=== PATIENT | female | born 1940 | race Caucasian/White ===

== ENCOUNTER 2021-01-17 15:58 | Inpatient (IN) | payer MEDICARE ==
[2021-01-17 16:20] LABS: Glucose,Whole Blood 289 mg/dL (75-99)
[2021-01-17] MEDS ORDERED: SODIUM CHLORIDE 0.9% 500 ML 500 ML IV STA (16:24)
--- NOTE | 2021-01-17 16:36 | ED ---
General Adult HPI - General Chief complaint: Syncope Stated complaint: dementia Time Seen by Provider: 01/17/21 16:04 Source: EMS Mode of arrival: EMS Limitations: language barrier - History of Present Illness Initial comments: Dictation was produced using [employer] dictation software. please excuse any grammatical, word or spelling errors. This patient was cared for during a federal and state declared state of emergency secondary to Covid 19 Chief Complaint: 80-year-old female with past medical history of CVA, residual deficits presents to the emergency department for altered mental status. History of Present Illness: Patient is an 80-year-old female she has past medical history of CVA. She presents to the emergency department via EMS for altered mental status. Patient unable to provide HPI at this time. Nurse received report from EMS reports to the emergency department for altered mental status. Approximately 5-10 minutes prior to arrival she had an episode of unresponsiveness this and was unable to be awakened. During EMS transfer patient begin returning to her normal baseline status. It's unclear from discussion with EMS and nurse what patient's residual deficits are. She allegedly has a history of stroke. More history was obtained from daughter Ilana Newell he was contacted over the phone. She was not home when all of this happened. She states that she was out of town. Patient was at home with rebekarenate carranza Madonna and her niece when this happened. So reports that this occurred 5 minuites prior to arrival. They're unable to tell me when patient was last normal period. Ilana does not have any contact information for Madonna who was at work currently. She also does not have any contact information for niece for more history of present illness. Daughter reports that at baseline patient is unable to be understood. She frequently urinates on herself and must wear diapers. Daughter also reports the patient does not have any extremity deficits. She also has dementia. Unable to obtain secondary to mental status PHYSICAL EXAM: General Impression: Alert and oriented x0/3, follows commands, not in acute distress, making random insensible noises HEENT: Normocephalic atraumatic, extra-ocular movements intact, pupils equal and reactive to light bilaterally, mucous membranes moist. Cardiovascular: Heart regular rate and rhythm Chest: Able to complete full sentences, no retractions, no tachypnea Abdomen: abdomen soft, non-tender, non-distended, no organomegaly Musculoskeletal: Pulses present and equal in all extremities, no peripheral edema Motor: no focal deficits noted Neurological: Right-sided facial droop, no extremity deficit or sensory deficit to light touch. She does follow commands intermittently. She makes obscene random facial expressions and noises. Skin: Intact with no visualized rashes ED course: 80-year-old female with past medical history of some cerebrovascular accident suffered in 2014 presents to the emergency department for episode of unresponsiveness, altered mental status. Vital signs upon arrival are within acceptable limits. At this point is unclear what patient's usual baseline is. Chart review was performed and there was an MRI from August 2015 that showed large evolving acute infarct of the left MCA distribution. Point of care blood sugar was 249. Given patient's deficits in uncertainty of her baseline NIH code stroke was paged. Daughter suggested that last known normal was within the last 2 hours. Patient given an NIH of 7. It's unclear when patient's symptoms began. Serum patient's age and comorbidities patient not a TPA candidate. Case is discussed with stroke doctor Dr. Jorgensen. Daughter of patient is at bedside reports that she appears to be at baseline at this time. CT brain and CT angios of the head and neck shows no acute processes. Images reviewed by radiology and stroke neurology recommends no surgical intervention at this time. States that she should be given aspirin and admitted observation with neurology consultation. Laboratory evaluation appears to be within acceptable limits. Patient given aspirin and admitted to hospitalist Dr. Logan. EKG interpretation: Ventricular rate 72, normal sinus rhythm,. 172, QRS 82, QTc 444. No MD prolongation, no QTC prolongation, no ST or T-wave changes noted. EKG compared to 09/11/2015 showing no changes. Overall, this EKG is unremarkable - Related Data Home Medications Medication Instructions Recorded Confirmed Budesonide/Formoterol Fumarate 1 puff IH BID 09/11/15 09/11/15 [Symbicort 160-4.5 Mcg Inhaler] Clotrimazole Cream [Lotrimin Cream] 1 applic TOPICAL BID 09/11/15 09/11/15 Ezetimibe [Zetia] 10 mg PO DAILY 09/11/15 09/11/15 Fluticasone Nasal [place] [Flonase 1 spray EA NOSTRIL BID 09/11/15 09/11/15 Nasal [place]] HYDROcodone/APAP 5-325MG [[place] 1 tab PO DAILY PRN 09/11/15 09/11/15 5-325] Magnesium 250 mg PO DAILY 09/11/15 09/11/15 Metoprolol Succinate (ER) [Toprol 25 mg PO DAILY 09/11/15 09/11/15 XL] Mometasone Furoate [Mometasone 1 applic TOPICAL BID 09/11/15 09/11/15 Furoate 0.1%] Montelukast [Singulair] 10 mg PO DAILY 09/11/15 09/11/15 Previous Rx's Medication Instructions Recorded Aspirin 325 mg PO DAILY #30 tab 09/15/15 Hydrochlorothiazide 12.5 mg PO DAILY #30 capsule 09/15/15 [hydroCHLOROthiazide] Losartan [Cozaar] 50 mg PO DAILY #30 tab 09/15/15 Allergies Allergy/AdvReac Type Severity Reaction Status Date / Time loratadine Allergy Unknown Verified 01/17/21 17:23 pseudoephedrine Allergy Unknown Verified 01/17/21 17:23 Decongestants Allergy Unknown Uncoded 01/17/21 17:23 Review of Systems ROS Statement: Those systems with pertinent positive or pertinent negative responses have been documented in the HPI. ROS Other: All systems not noted in ROS Statement are negative. Past Medical History Past Medical History: Deep Vein Thrombosis (DVT), Hypertension, Unable to Obtain Additional Past Medical History / Comment(s): Altered mental status History of Any Multi-Drug Resistant Organisms: None Reported Past Surgical History: Orthopedic Surgery Past Anesthesia/Blood Transfusion Reactions: Unable to Obtain Past Psychological History: Unable to Obtain Past Alcohol Use History: None Reported Past Drug Use History: Unable to Obtain - Past Family History Father Family Medical History: Diabetes Mellitus Mother Family Medical History: Blood Disorder, CVA/TIA General Exam Limitations: language barrier Course Vital Signs 01/17/21 16:10 Temperature 98.2 F Pulse Rate 72 Respiratory 16 Rate Blood Pressure 141/111 O2 Sat by Pulse 94 L Oximetry Medical Decision Making - Lab Data Result diagrams: 01/17/21 16:31 01/17/21 16:31 Lab Results 01/17/21 01/17/21 01/17/21 Range/Units 16:19 16:31 16:31 WBC 6.8 (3.8-10.6) k/uL RBC 5.18 (3.80-5.40) m/uL Hgb 14.3 (11.4-16.0) gm/dL Hct 44.4 (34.0-46.0) % MCV 85.6 (80.0-100.0) fL MCH 27.6 (25.0-35.0) pg MCHC 32.2 (31.0-37.0) g/dL RDW 13.0 (11.5-15.5) % Plt Count 251 (150-450) k/uL MPV 7.4 Neutrophils % 63 % Lymphocytes % 26 % Monocytes % 5 % Eosinophils % 3 % Basophils % 1 % Neutrophils # 4.3 (1.3-7.7) k/uL Lymphocytes # 1.8 (1.0-4.8) k/uL Monocytes # 0.4 (0-1.0) k/uL Eosinophils # 0.2 (0-0.7) k/uL Basophils # 0.1 (0-0.2) k/uL PT 9.8 (9.0-12.0) sec INR 0.9 (<1.2) APTT 20.6 L (22.0-30.0) sec Sodium (137-145) mmol/L Potassium (3.5-5.1) mmol/L Chloride (98-107) mmol/L Carbon Dioxide (22-30) mmol/L Anion Gap mmol/L BUN (7-17) mg/dL Creatinine (0.52-1.04) mg/dL Est GFR (CKD-EPI)AfAm (>60 ml/min/1.73 sqM) Est GFR (CKD-EPI)NonAf (>60 ml/min/1.73 sqM) Glucose (74-99) mg/dL POC Glucose (mg/dL) 289 H (75-99) mg/dL POC Glu Physical Chemistry Teacher Michaela Deluna Calcium (8.4-10.2) mg/dL Total Bilirubin (0.2-1.3) mg/dL AST (14-36) U/L ALT (4-34) U/L Alkaline Phosphatase (38-126) U/L Troponin I (0.000-0.034) ng/mL Total Protein (6.3-8.2) g/dL Albumin (3.5-5.0) g/dL 01/17/21 01/17/21 Range/Units 16:31 16:31 WBC (3.8-10.6) k/uL RBC (3.80-5.40) m/uL Hgb (11.4-16.0) gm/dL Hct (34.0-46.0) % MCV (80.0-100.0) fL MCH (25.0-35.0) pg MCHC (31.0-37.0) g/dL RDW (11.5-15.5) % Plt Count (150-450) k/uL MPV Neutrophils % % Lymphocytes % % Monocytes % % Eosinophils % % Basophils % % Neutrophils # (1.3-7.7) k/uL Lymphocytes # (1.0-4.8) k/uL Monocytes # (0-1.0) k/uL Eosinophils # (0-0.7) k/uL Basophils # (0-0.2) k/uL PT (9.0-12.0) sec INR (<1.2) APTT (22.0-30.0) sec Sodium 137 (137-145) mmol/L Potassium 4.5 (3.5-5.1) mmol/L Chloride 100 (98-107) mmol/L Carbon Dioxide 30 (22-30) mmol/L Anion Gap 7 mmol/L BUN 13 (7-17) mg/dL Creatinine 0.65 (0.52-1.04) mg/dL Est GFR (CKD-EPI)AfAm >90 (>60 ml/min/1.73 sqM) Est GFR (CKD-EPI)NonAf 84 (>60 ml/min/1.73 sqM) Glucose 298 H (74-99) mg/dL POC Glucose (mg/dL) (75-99) mg/dL POC Glu Physical Chemistry Teacher ID Calcium 9.7 (8.4-10.2) mg/dL Total Bilirubin 0.6 (0.2-1.3) mg/dL AST 44 H (14-36) U/L ALT 28 (4-34) U/L Alkaline Phosphatase 81 (38-126) U/L Troponin I <0.012 (0.000-0.034) ng/mL Total Protein 7.2 (6.3-8.2) g/dL Albumin 4.1 (3.5-5.0) g/dL Disposition Clinical Impression: Syncope Disposition: ADMITTED IP TO THIS HOSP Condition: Fair Referrals: Natali Lawson DO [Primary Care Provider] - 1-2 days Decision Time: 17:24
[2021-01-17 16:37] LABS: Basophils # (A) 0.1 k/uL (0-0.2); Basophils % (A) 1 %; Eosinophils # (A) 0.2 k/uL (0-0.7); Eosinophils % (A) 3 %; HCT 44.4 % (34.0-46.0); HGB 14.3 gm/dL (11.4-16.0); Lymphocytes # (A) 1.8 k/uL (1.0-4.8); Lymphocytes % (A) 26 %; MCH 27.6 pg (25.0-35.0); MCHC 32.2 g/dL (31.0-37.0); MCV 85.6 fL (80.0-100.0); Mean Platelet Volume 7.4; Monocytes # (A) 0.4 k/uL (0-1.0); Monocytes % (A) 5 %; Neutrophils # (A) 4.3 k/uL (1.3-7.7); Neutrophils % (A) 63 %; Platelet Count 251 k/uL (150-450); RBC 5.18 m/uL (3.80-5.40); WBC 6.8 k/uL (3.8-10.6)
[2021-01-17 16:51] LABS: ALT 28 U/L (4-34); AST 44 U/L (14-36); African American GFR (CKD) >90 (>60 ml/min/1.73 sqM); Albumin 4.1 g/dL (3.5-5.0); Alkaline Phosphatase 81 U/L (38-126); Anion Gap 7 mmol/L; Blood Urea Nitrogen 13 mg/dL (7-17); Calcium 9.7 mg/dL (8.4-10.2); Carbon Dioxide 30 mmol/L (22-30); Chloride 100 mmol/L (98-107); Glucose 298 mg/dL (74-99); Non-African American GFR(CKD) 84 (>60 ml/min/1.73 sqM); Potassium 4.5 mmol/L (3.5-5.1); Sodium 137 mmol/L (137-145); Total Bilirubin 0.6 mg/dL (0.2-1.3); Total Protein 7.2 g/dL (6.3-8.2)
[2021-01-17 16:55] LABS: INR 0.9 (<1.2); Prothrombin Time 9.8 sec (9.0-12.0)
[2021-01-17 17:00] LABS: Partial Thromboplastin Time 20.6 sec (22.0-30.0)
--- NOTE | 2021-01-17 17:19 | CT ---
EXAMINATION TYPE: CT brain wo con for TPA DATE OF EXAM: 01/17/2021 HISTORY: Neuro deficit, acute, stroke suspected. History of prior stroke.. CT DLP: 1125.8 mGycm. Automated Exposure Control for Dose Reduction was Utilized. TECHNIQUE: CT scan of the head is performed without contrast. COMPARISON: 09/11/2015 FINDINGS: There is no acute intracranial hemorrhage, midline shift, or mass effect identified. There is old inf arction with large area of encephalomalacia of the left MCA distribution, with concordant ex vacuo di latation of the left lateral ventricle. No abnormal extra-axial fluid collection. Bones and extracranial soft tissues are intact. The globes are grossly symmetric. Visualized sinuses and mastoid air cells are clear. IMPRESSION: 1. No acute intracranial hemorrhage, midline shift, or mass effect. 2. Old infarction of the left MCA distribution. Dr. Laura Harrison discussed findings with Dr. Jeison Troy via the phone on 01/17/2021 at 5:16 PM, and results were acknowledged.
[2021-01-17] MEDS ORDERED: ASPIRIN 81 MG PO STA (17:21)
[2021-01-17] MEDS ORDERED: ONDANSETRON 4 MG/2 ML VIAL IVP PRN (17:22)
[2021-01-17] MEDS ORDERED: NALOXONE 0.4 MG/ML 1 ML VIAL IV PRN (17:22)
[2021-01-17] MEDS ORDERED: ACETAMINOPHEN TAB 325 MG TAB PO PRN (17:22)
--- NOTE | 2021-01-17 17:29 | CT ---
EXAMINATION TYPE: CT angio head neck DATE OF EXAM: 01/17/2021 HISTORY: Not communicating. Neuro deficit, acute, stroke suspected COMPARISON: None CT DLP: 570.8 mGycm. Automated Exposure Control for Dose Reduction was Utilized. TECHNIQUE: CTA scan of the neck is performed with IV Contrast, patient injected with 65 mL of Isovue 370, axial images are obtained, coronal and sagittal reformatted images are reviewed. Three-D recons tructed images are created on an independent workstation and reviewed. Source images are reviewed. FINDINGS: Carotid/Vascular Structures: There is patency of the bilateral common carotid arteries and internal c arotid arteries with no hemodynamically significant stenosis, aneurysm, or dissection. Cervical of [place]: Vertebral basilar system appears patent and codominant. Posterior cerebral vascul ature is patent. Atherosclerotic changes of the cavernous portion of the ICA without significant sign ificant stenosis. Internal carotid artery bifurcate normally into A1 and M1 segments on the right. On the left there is large vessel occlusion of the middle cerebral artery at the level of the origin. A 2 segments are patent. The anterior communicating artery is patent. Left Posterior communicating gabby ry is diminutive versus congenitally absent. Right posterior communicating artery is patent. Other: Encephalomalacia and ex vacuo dilatation of the left lateral ventricles consistent with chroni c infarction of the left MCA distribution. IMPRESSION: 1. 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 There is o ld infarction with encephalomalacia of the left MCA territory and ex vacuo dilatation of the left lat eral ventricle. 2. No hemodynamically significant stenosis or occlusion of the arteries of the neck.
--- NOTE | 2021-01-17 17:55 | XR ---
EXAMINATION TYPE: XR chest 1V portable DATE OF EXAM: 01/17/2021 CLINICAL HISTORY: seizure? Syncope?. TECHNIQUE: Portable frontal view of the chest. COMPARISON: 09/11/2015 chest radiograph FINDINGS: Low lung volumes. The cardiomediastinal silhouette is within normal limits for size. Pulmo nary vasculature is normal. There is no focal air space opacity, pleural effusion, or pneumothorax se en. Chronic appearing right rib fracture deformity. IMPRESSION: No acute cardiopulmonary process.
[2021-01-17 20:06] LABS: Glucose,Whole Blood 240 mg/dL (75-99)
[2021-01-17] MEDS: ATORVASTATIN 40 MG TAB PO SCH (20:25)
[2021-01-17] MEDS: MONTELUKAST 10 MG TAB PO SCH (20:25)
[2021-01-17] MEDS: SODIUM CHLORIDE 0.9% 1,000 ML IV SCH (20:25)
[2021-01-17] MEDS: INSULIN ASPART (NovoLOG) 100 UNIT/ML VIAL SQ SCH (20:25)
[2021-01-18 06:10] LABS: Glucose,Whole Blood 151 mg/dL (75-99)
[2021-01-18] MEDS: PANTOPRAZOLE 40 MG TABLET PO SCH (06:57)
[2021-01-18] MEDS: INSULIN ASPART (NovoLOG) 100 UNIT/ML VIAL SQ SCH ×4 (06:57→21:26)
[2021-01-18] MEDS: ASPIRIN 325 MG TAB PO SCH (07:41)
[2021-01-18] MEDS: FLUoxetine HCL 20 MG CAP PO SCH (07:41)
[2021-01-18] MEDS: METOPROLOL TARTRATE 25 MG TAB PO SCH (07:41)
[2021-01-18] MEDS: hydroCHLOROthiazide 12.5 MG CAP PO SCH (07:42)
[2021-01-18] MEDS: EZETIMIBE 10 MG TAB PO SCH (07:42)
[2021-01-18] MEDS: amLODIPine 5 MG TAB PO SCH (10:38)
[2021-01-18 11:36] LABS: Glucose,Whole Blood 243 mg/dL (75-99)
[2021-01-18 11:51] LABS: Appearance,Urine Clear (Clear); Bilirubin,Urine Negative (Negative); Blood,Urine Negative (Negative); Color,Urine Light Yellow; Glucose,Urine (UA) 2+ (Negative); Ketones,Urine Negative (Negative); Leukocyte Esterase,Urine Negative (Negative); Nitrite,Urine Negative (Negative); Protein,Urine Negative (Negative); Specific Gravity,Urine 1.015 (1.001-1.035); Urobilinogen,Urine <2.0 mg/dL (<2.0)
[2021-01-18 16:43] LABS: Glucose,Whole Blood 207 mg/dL (75-99)
[2021-01-18] MEDS: SODIUM CHLORIDE 0.9% 1,000 ML IV SCH (17:14)
--- NOTE | 2021-01-18 18:30 | P.CNNES ---
History of Present Illness Consult date: 01/18/21 Requesting physician: Mark Logan Reason for Consult: Altered mental status, resolved, discharge clearance History of Present Illness: Patient is a 80-year-old female came to the hospital yesterday at 3:58 PM by ambulance. 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 Patient not able to provide any history. Per EMS flow sheet, when they arrived, patient was alert and oriented to baseline, in her recliner. Family has noted that just before activating 911, the patient had clenched her eyes and had some shaking in her arms before briefly becoming unresponsive and difficult to be awakened. During EMS transfer, patient began returning to her normal baseline status. According to EMS sheet, patient was noted to have slurred speech, right facial drooping and right sided deficits from previous CVA. Her vital signs at the scene was blood pressure 149/86, pulse rate 77, respirations 16. Blood sugar was 320. Patient returned back to baseline while she arrived to the ER, as per information from patient's granddaughter statement. Patient was therefore not a candidate for TPA. Vital signs on arrival blood pressure 141/111, which came down to 158/81. Temperature 98.2, pulse 72. Patient's blood pressure has gone up to 213/85 as well. Patient's computed tomography scan of the head showed no acute intracranial hemorrhage, midline shift or mass effect. Old infarction of the left MCA distribution. CTA of head and neck showed complete occlusion of the left MCA at the origin of M1 segment. There is old infarction with encephalomalacia of the left MCA territory and ex vacuo dilation of the left lateral ventricle. No hemodynamically significant stenosis or occlusion of the arteries of the neck. EKG shows normal sinus rhythm. Left axis deviation. Chest x-ray showed no acute cardiopulmonary disease. Patient has history of an acute left MCA territory stroke on 09/12/2015, in which MRI showed a large evolving acute infarct left MCA distribution involving portions of frontal, parietal and temporal lobes. Patient currently on Crestor 20 mg, omeprazole 20 mg, fluoxetine 40 mg, metoprolol 25 mg HCTZ, aspirin 325 mg, Zetia 10 mg and Singulair. Review of Systems ROS unobtainable: due to mental status Past Medical History Past Medical History: Deep Vein Thrombosis (DVT), Hypertension, Unable to Obtain Additional Past Medical History / Comment(s): Altered mental status patient unable to answer questions message left at home phone number to call back to help with medical hs and admit info. History of Any Multi-Drug Resistant Organisms: None Reported Past Surgical History: Orthopedic Surgery Past Anesthesia/Blood Transfusion Reactions: Unable to Obtain Past Psychological History: Unable to Obtain Smoking Status: Never smoker Past Alcohol Use History: None Reported Past Drug Use History: Unable to Obtain - Past Family History Father Family Medical History: Diabetes Mellitus Mother Family Medical History: Blood Disorder, CVA/TIA Medications and Allergies Home Medications Medication Instructions Recorded Confirmed Type Ezetimibe [Zetia] 10 mg PO DAILY 09/11/15 01/17/21 History Montelukast [Singulair] 10 mg PO DAILY 09/11/15 01/17/21 History Aspirin 325 mg PO DAILY #30 tab 09/15/15 01/17/21 Rx Hydrochlorothiazide 12.5 mg PO DAILY #30 capsule 09/15/15 01/17/21 Rx [hydroCHLOROthiazide] FLUoxetine HCL 40 mg PO DAILY 01/17/21 01/17/21 History Metoprolol Tartrate [Lopressor] 25 mg PO DAILY 01/17/21 01/17/21 History Omeprazole 20 mg PO DAILY 01/17/21 01/17/21 History Rosuvastatin [Crestor] 20 mg PO DAILY 01/17/21 01/17/21 History amLODIPine [Norvasc] 5 mg PO DAILY #30 tab 01/18/21 Rx Allergies Allergy/AdvReac Type Severity Reaction Status Date / Time loratadine Allergy Unknown Verified 01/17/21 17:23 pseudoephedrine Allergy Unknown Verified 01/17/21 17:23 Decongestants Allergy Unknown Uncoded 01/17/21 17:23 Physical Examination - Vital Signs Vital Signs: Vital Signs Temp Pulse Pulse Resp BP BP Pulse Ox 01/18/21 14:50 98.0 F 69 18 167/78 95 01/18/21 11:27 167/78 01/18/21 10:41 98.2 F 64 16 213/85 94 L 01/18/21 07:26 97.8 F 67 16 199/91 01/18/21 04:00 98.6 F 80 18 140/82 95 01/18/21 02:00 73 20 01/18/21 00:00 73 20 136/88 94 L 01/17/21 20:00 78 18 01/17/21 18:29 98.2 F 78 18 148/70 95 01/17/21 17:26 72 19 158/81 94 L Intake and Output 01/18/21 01/18/21 01/18/21 06:59 14:59 22:59 Intake Total 160 Output Total 250 Balance -90 Intake: IV 160 Sodium Chloride 0.9% 1, 160 000 ml @ 20 mls/hr IV . Q24H KYLE Rx#:[id number] Output: Urine 250 Straight 250 Other: # Voids 1 1 # Bowel Movements 1 Weight 93 kg Patient is an elderly female, very pleasant. Patient is alert awake. Patient has fluent aphasia. Patient speaks nonsensical language fluently. Patient cannot name, cannot repeat, cannot follow directions like pointing to the door or pointing to the ceiling. Patient not able to read, not able to follow written commands either. On cranial examination, pupils are round and reacting to light, visual jo could not be tested, but patient blinks more clearly on the left as compared to the right with visual threat, extraocular muscles are intact with no nystagmus. Patient has right facial weakness, central type, tongue protrudes to the midline. Palatal elevation and sensation could not be checked, shoulder shrug normal, facial sensation normal. Hearing appears normal. On muscle strength testing, there is no pronator drift and the strength is normal in arms and legs distally and proximally. Deep tendon reflexes are 1-1+ in the upper and lower limbs and plantars are downgoing. Sensory to touch could not be assessed because of patient's fluent aphasia. Cerebellar function showed no ataxia for [id number] testing. Tone and bulk of muscles normal. Gait deferred. On general examination, there is no carotid bruit or murmur, S1-S2 audible. Abdomen is soft nontender. Chest is clear. Peripheral pulses are present. No edema. Results - Laboratory Findings CBC and BMP: 01/17/21 16:31 01/17/21 16:31 Abnormal Lab Findings: Abnormal Labs 01/17/21 01/17/21 01/17/21 16:19 16:31 16:31 APTT 20.6 L Glucose 298 H POC Glucose (mg/dL) 289 H AST 44 H Urine Glucose (UA) 01/17/21 01/18/21 01/18/21 20:05 06:09 10:35 APTT Glucose POC Glucose (mg/dL) 240 H 151 H AST Urine Glucose (UA) 2+ H 01/18/21 11:35 APTT Glucose POC Glucose (mg/dL) 243 H AST Urine Glucose (UA) Assessment and Plan Assessment: * 80-year-old female, with history of left MCA territory ischemic CVA in 2014, with residual fluent aphasia, had an episode of unresponsiveness with some seizure-like activity, and some post ictal confusion. Rule out focal seizure. * History of left MCA territory CVA with residual deficits as above. * CTA revealed complete occlusion of left MCA at the origin of M1 segment. Probably old finding. Plan: * EEG evaluate for any interictal epileptiform activity. * MRI brain, rule out any new CVA. * Continue aspirin 325 mg daily. If any new CVA, then patient would need dual antiplatelet medication. * Hemoglobin A1c and fasting lipid panel. * We will follow.
[2021-01-18 19:58] LABS: Glucose,Whole Blood 231 mg/dL (75-99)
[2021-01-18] MEDS: MONTELUKAST 10 MG TAB PO SCH (21:27)
[2021-01-18] MEDS: ATORVASTATIN 40 MG TAB PO SCH (21:27)
[2021-01-19 05:58] LABS: Glucose,Whole Blood 180 mg/dL (75-99)
[2021-01-19] MEDS: INSULIN ASPART (NovoLOG) 100 UNIT/ML VIAL SQ SCH ×2 (06:14→12:38)
[2021-01-19] MEDS: PANTOPRAZOLE 40 MG TABLET PO SCH (06:15)
--- NOTE | 2021-01-19 08:10 | P.HPIM ---
History of Present Illness H&P Date: 01/18/21 Chief Complaint: shaking spell Hali Newell is an 80 yo F with PMH of CVA with subsequent global aphasia who presented to the ED via EMS after experiencing an episode at home in which she was noted to shake her upper extremitiesa and was very diffcult to arouse. Patient not able to provide any history. Per EMS flow sheet, when they arrived, patient was alert and oriented to baseline, in her recliner. Family has noted that just before activating 911, the patient had clenched her eyes and had some shaking in her arms before briefly becoming unresponsive and difficult to be awakened. During EMS transfer, patient began returning to her normal baseline status. Patient returned back to baseline while she arrived to the ER, as per information from patient's granddaughter statement. Patient was therefore not a candidate for TPA. On presentation she was hypertensive, CT head no acute process, CTA of head and neck showed complete occlusion of the left MCA at the origin of M1 segment. Review of Systems ROS unobtainable: due to mental status All systems: negative Constitutional: Denies chills, Denies fever Eyes: denies blurred vision, denies pain Ears, nose, mouth and throat: Denies headache, Denies sore throat Cardiovascular: Denies chest pain, Denies shortness of breath Respiratory: Denies cough Gastrointestinal: Reports abdominal pain, Denies diarrhea, Denies nausea, Denies vomiting Genitourinary: Denies dysuria, Denies hematuria Musculoskeletal: Denies myalgias Integumentary: Denies pruritus, Denies rash Neurological: Denies numbness, Denies weakness Psychiatric: Denies anxiety, Denies depression Endocrine: Denies fatigue, Denies weight change Past Medical History Past Medical History: Deep Vein Thrombosis (DVT), Hypertension, Unable to Obtain Additional Past Medical History / Comment(s): Altered mental status patient unable to answer questions message left at home phone number to call back to help with medical hs and admit info. History of Any Multi-Drug Resistant Organisms: None Reported Past Surgical History: Orthopedic Surgery Past Anesthesia/Blood Transfusion Reactions: Unable to Obtain Past Psychological History: Unable to Obtain Smoking Status: Never smoker Past Alcohol Use History: None Reported Past Drug Use History: Unable to Obtain - Past Family History Father Family Medical History: Diabetes Mellitus Mother Family Medical History: Blood Disorder, CVA/TIA Medications and Allergies Home Medications Medication Instructions Recorded Confirmed Type Ezetimibe [Zetia] 10 mg PO DAILY 09/11/15 01/17/21 History Montelukast [Singulair] 10 mg PO DAILY 09/11/15 01/17/21 History Aspirin 325 mg PO DAILY #30 tab 09/15/15 01/17/21 Rx Hydrochlorothiazide 12.5 mg PO DAILY #30 capsule 09/15/15 01/17/21 Rx [hydroCHLOROthiazide] FLUoxetine HCL 40 mg PO DAILY 01/17/21 01/17/21 History Metoprolol Tartrate [Lopressor] 25 mg PO DAILY 01/17/21 01/17/21 History Omeprazole 20 mg PO DAILY 01/17/21 01/17/21 History Rosuvastatin [Crestor] 20 mg PO DAILY 01/17/21 01/17/21 History amLODIPine [Norvasc] 5 mg PO DAILY #30 tab 01/18/21 Rx Allergies Allergy/AdvReac Type Severity Reaction Status Date / Time loratadine Allergy Unknown Verified 01/17/21 17:23 pseudoephedrine Allergy Unknown Verified 01/17/21 17:23 Decongestants Allergy Unknown Uncoded 01/17/21 17:23 Physical Exam Vitals: Vital Signs Temp Pulse Resp BP Pulse Ox 01/18/21 14:50 98.0 F 69 18 167/78 95 01/18/21 11:27 167/78 01/18/21 10:41 98.2 F 64 16 213/85 94 L 01/18/21 07:26 97.8 F 67 16 199/91 01/18/21 04:00 98.6 F 80 18 140/82 95 01/18/21 02:00 73 20 01/18/21 00:00 73 20 136/88 94 L Intake and Output 01/18/21 01/18/21 01/18/21 06:59 14:59 22:59 Intake Total 160 240 Output Total 250 Balance -90 240 Intake: IV 160 Sodium Chloride 0.9% 1, 160 000 ml @ 20 mls/hr IV . Q24H KYLE Rx#:[id number] Oral 240 Output: Urine 250 Straight 250 Other: # Voids 1 1 # Bowel Movements 1 Weight 93 kg General: well nourished, well developed elderly female in NAD. Vitals reviewed Eyes: PERRL, EOMI, conjunctiva normal HENT: normocephalic, mucus membranes moist Neck: supple, no JVD Lungs: normal respiratory effort, no wheezes or rales CV: Regular rate and rhythm, no murmur. Peripheral pulses 2+ Abdomen: soft, nondistended, no organomegaly. tenderness to palpation suprapubic Lymph: no cervical or axillary LAD Skin: warm and dry. Neuro: oriented, expressive aphasia Results CBC & Chem 7: 01/17/21 16:31 01/17/21 16:31 Labs: Abnormal Lab Results - Last 24 Hours (Table) 01/18/21 01/18/21 01/18/21 Range/Units 06:09 10:35 11:35 POC Glucose (mg/dL) 151 H 243 H (75-99) mg/dL Urine Glucose (UA) 2+ H (Negative) 01/18/21 01/18/21 Range/Units 16:41 19:57 POC Glucose (mg/dL) 207 H 231 H (75-99) mg/dL Urine Glucose (UA) (Negative) Assessment and Plan (1) Seizure-like activity Current Visit: Yes Status: Acute Code(s): R56.9 - UNSPECIFIED CONVULSIONS SNOMED Code(s): 784614171 (2) History of CVA with residual deficit Current Visit: Yes Status: Acute Code(s): I69.30 - UNSPECIFIED SEQUELAE OF CEREBRAL INFARCTION SNOMED Code(s): 978021094 (3) Essential hypertension Current Visit: Yes Status: Acute Code(s): I10 - ESSENTIAL (PRIMARY) HYPERTENSION SNOMED Code(s): 63665217 Plan: 1. Seizure like activity, not candidate for tPA as she has returned to baseline. Admit and neurology consulted for further evaluation 2. Hx L MCA CVA with fluent aphasia. Continue ASA and lipitor 3. HTN. Continue HCTZ, metoprolol 4. Major depression. Continue prozac
[2021-01-19] MEDS: ASPIRIN 325 MG TAB PO SCH (10:41)
[2021-01-19] MEDS: hydroCHLOROthiazide 12.5 MG CAP PO SCH (10:42)
[2021-01-19] MEDS: METOPROLOL TARTRATE 25 MG TAB PO SCH (10:43)
[2021-01-19] MEDS: FLUoxetine HCL 20 MG CAP PO SCH (10:43)
[2021-01-19] MEDS: EZETIMIBE 10 MG TAB PO SCH (10:45)
[2021-01-19] MEDS: amLODIPine 5 MG TAB PO SCH (10:45)
[2021-01-19 11:37] LABS: Glucose,Whole Blood 199 mg/dL (75-99)
--- NOTE | 2021-01-19 12:28 | EEG ---
ELECTROENCEPHALOGRAM REPORT DATE OF SERVICE: 01/19/2021 PREAMBLE: This is an 80-year-old female with a history of stroke, came with seizure-like activity. This study is performed to evaluate for any epileptiform activity. EEG FINDINGS: This is a 21 channel routine EEG recording in a patient utilizing 10/20 international system with referential and bipolar montages. The background consists of well- developed, moderately well regulated, mixed frequencies of alpha and some theta activity seen posteriorly in bihemispheric region. The background seems to be very minimally reactive to eye opening and closing. There is digital frequent pause of focal slowing in polymorphic delta range seen in the left frontal temporal region. Additional asynchronous slowing in bihemispheric region was also seen. Photic driving response was not seen. No definitive focal or generalized epileptiform activity was seen. IMPRESSION: This is an abnormal EEG due to: 1. Focal slowing in rhythmic and arrhythmic delta activity seen in the left frontal temporal region, suggestive of focal cortical neuronal dysfunctions and suggest underlying structural abnormality. 2. Background disorganization with asynchronous slowing suggestive of encephalopathy of metabolic, vascular or degenerative causes. No definitive epileptiform activity was seen. MMODL / IJN: [id number] /
[2021-01-19 13:29] VITALS: BP 145/66; PULSE 57; RESP 19; TEMP 97.7
[2021-01-19 13:29] LABS: Cholesterol 269 mg/dL (<200); HDL Cholesterol 38 mg/dL (40-60); LDL Cholesterol,Calculated 165 mg/dL (0-99); Triglycerides 332 mg/dL (<150)
--- NOTE | 2021-01-19 15:46 | MR ---
EXAMINATION TYPE: MR brain wo con DATE OF EXAM: 01/19/2021 COMPARISON: MRI brain September 12, 2015. CT head 2 days ago. HISTORY: Seizure versus TIA versus CVA. Confusion, not able to speak clearly; acute onset neuro defic it 2 days ago on admission. TECHNIQUE: Multiplanar, multisequence imaging of the brain and brainstem is performed without IV cont rast. FINDINGS: Diffusion weighted images demonstrate no evidence of a recent infarct . There is moderate ventricular and sulcal prominence. Significant encephalomalacia in the left MCA dis tribution involving frontal temporal and parietal lobes with ex vacuo dilatation left lateral ventric ular system is redemonstrated. There are areas of T2 hyperintensity throughout the white matter great est at periventricular levels now present. Midline structures demonstrate normal morphology. The craniocervical junction appears within normal limits. Normal vascular flow voids are present. Moderate to severe mucosal thickening involving the sphenoid sinuses bilaterally is redemonstrated. The globes are intact bilaterally. IMPRESSION: No MRI evidence for recent infarct. Large area of encephalomalacia left MCA distribution redemonstrated noted involving the left temporal lobe. Background moderate diffuse cerebral atrophy a nd chronic small vessel ischemic changes.
[2021-01-19 16:38] LABS: Glucose,Whole Blood 194 mg/dL (75-99)
[2021-01-19 20:33] LABS: Hemoglobin A1C 10.1 % (4.0-6.0)
--- NOTE | 2021-01-20 09:06 | P.PN ---
Subjective Progress Note Date: 01/19/21 Patient was seen earlier during the day. This is late entry. Patient is laying comfortably in the bed. Patient continues to be fluently aphasic. Having her lunch. Objective - Vital Signs Vital signs: Vital Signs Temp 97.7 F 01/19/21 13:28 Pulse 57 L 01/19/21 14:00 Resp 19 01/19/21 14:00 BP 145/66 01/19/21 13:28 Pulse Ox 96 01/19/21 13:28 Intake & Output 01/19/21 01/19/21 01/20/21 06:59 18:59 06:59 Intake Total 720 Balance 720 Weight 91 kg Intake: Oral 720 Other: # Voids 1 1 - Exam Essentially unchanged. - Labs CBC & Chem 7: 01/17/21 16:31 01/17/21 16:31 Labs: Abnormal Lab Results - Last 24 Hours (Table) 01/19/21 01/19/21 01/19/21 Range/Units 05:57 11:35 12:54 POC Glucose (mg/dL) 180 H 199 H (75-99) mg/dL Hemoglobin A1c 10.1 H (4.0-6.0) % Triglycerides (<150) mg/dL Cholesterol (<200) mg/dL LDL Cholesterol, Calc (0-99) mg/dL HDL Cholesterol (40-60) mg/dL 01/19/21 01/19/21 Range/Units 12:54 16:35 POC Glucose (mg/dL) 194 H (75-99) mg/dL Hemoglobin A1c (4.0-6.0) % Triglycerides 332 H (<150) mg/dL Cholesterol 269 H (<200) mg/dL LDL Cholesterol, Calc 165 H (0-99) mg/dL HDL Cholesterol 38 L (40-60) mg/dL Assessment and Plan Assessment: * 80-year-old female, with history of left MCA territory ischemic CVA in 2015, w ith residual fluent aphasia, had an episode of unresponsiveness with some seizure-like activity, and some post ictal confusion. Rule out focal seizure. * History of left MCA territory CVA with residual deficits as above. * CTA revealed complete occlusion of left MCA at the origin of M1 segment. Prob ably old finding. Plan: * EEG was abnormal due to focal slowing in rhythmic and arrhythmic delta activity seen in the left frontal temporal region, suggestive of focal cortic al neuronal dysfunction and suggest underlying structural abnormality. Background disorganization with asynchronous slowing suggestive of encephalopathy of metabolic, vascular or degenerative causes. No definitive epileptiform activity was seen. * MRI brain revealed no acute process. Large area of encephalomalacia left MCA distribution redemonstrated noted involving the left temporal lobe. Ba ckground moderate diffuse cerebral atrophy and chronic small vessel ischemic changes. MRI of the brain also revealed bilateral acute sphenoid sinusitis, worse as compared to previous imaging. * Continue aspirin 325 mg daily. If any new CVA, then patient would need dual antiplatelet medication. Recommendations: Patient's MRI of the brain showed no new stroke. EEG showed focal slowing which is rhythmic and arrhythmic on the left frontal temporal region. Patient's episo de was highly suggestive of possible seizure. Patient will be started on Keppra 250 mg twice a day. Patient needs to follow-up with a neurologist in 1-2 weeks if possible, for further management of seizure disorder. Patient will be continued on aspirin 325 mg daily. Patient also has evidence of sphenoid sinusitis. Recommend starting Augmentin 875 mg twice a day for 10-14 days. Addendum 01/20/2021 (9 am): Reviewed further blood test results of the patient. Hemoglobin A1c 10.1 Fasting lipid panel showed cholesterol 269, LDL 165, HDL 38 and triglycerides 332. Patient has new onset diabetes with hemoglobin A1c 10.1. Need to optimize control of diabetes to target hemoglobin A1c <7.0 Patient's lipids also showed very high cholesterol 269 and LDL 165. Recommend starting high-dose statins Lipitor 80 mg. Discussed with patient's primary team about these recommendations today. Patient needs to follow-up with her primary physician as soon as possible.
--- NOTE | 2021-01-20 13:44 | P.DS ---
Providers Date of admission: 01/17/21 17:22 Expected date of discharge: 01/19/21 Attending physician: Mark Logan MD Consults: 01/18/21 09:54 Consult Physician Routine Consulting Provider: Prashant Flores Consult Reason/Comments: Alterend Mental Status - resolved, discharge clearance Do you want consulting provider notified?: Yes Primary care physician: Natali Lawson Hospital Course: Final Diagnoses: Seizure like activity, not a candidate for TPA as he returned to baseline. Keppra initiated. 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 Patient not able to provide any history. Per EMS flow sheet, when they arrived, patient was alert and oriented to baseline, in her recliner. Family has noted that just before activating 911, the patient had clenched her eyes and had some shaking in her arms before briefly becoming unresponsive and difficult to be awakened. During EMS transfer, patient began returning to her normal baseline status. Patient returned back to baseline while she arrived to the ER, as per information from patient's granddaughter statement. Patient was therefore not a candidate for TPA. On presentation she was hypertensive, CT head no acute process, CTA of head and neck showed complete occlusion of the left MCA at the origin of M1 segment. Evaluated by neurology neurology, neuro workup completed. Brain MRI reported no acute process, large area of encephalomalacia left MCA distribution redemonstrated noted involving the left temporal lobe. Background moderate diffuse cerebral atrophy and chronic small vessel ischemic changes,also revealed bilateral acute sphenoid sinusitis, worse as compared to previous imaging. Patient will be discharged on Augmentin. EGD reported focal slowing, rhythmic and arrhythmic of the left frontotemporal region. Patient had an episode of unresponsiveness with some seizure-like activity with some post ictal confusion, highly suggestive of possible seizure. Keppra initiated and advised to follow up with a neurologist in 1-2 weeks. Continued on aspirin 325 mg daily. Patient also presented with high cholesterol, 269 and LDL 165, HDL 38, triglycerides 332, statin changed over to Lipitor 80 mg daily. Hemoglobin A1c 10.1, metformin initiated and patient will require diabetic teaching in the outpatient clinic. Significant clinical improvement. Cleared by neurology for discharge. Patient will be discharged home today in a stable condition with guarded prognosis. Patient is scheduled to follow-up with Dr. Mark Logan on Saturday. Patient has been advised on seizure precautions/[place] state law regarding seizures, no driving, no swimming alone. The impression and plan of care has been dictated as directed. : I performed a history and examination of this patient, discussed the same with the dictator. I agree with the dictator's note ,documented as a scribe. Any additional findings or plans will be noted. Patient Condition at Discharge: Stable Plan - Discharge Summary New Discharge Prescriptions: New amLODIPine [Norvasc] 5 mg PO DAILY #30 tab Amoxic-Pot Clav 875-125Mg [Augmentin 875-125] 1 tab PO BID 1 Days #20 tab levETIRAcetam [Keppra] 250 mg PO BID #60 tab Atorvastatin [Lipitor] 80 mg PO HS #30 tab metFORMIN HCL [Glucophage] 500 mg PO BID #60 tab Continue Montelukast [Singulair] 10 mg PO DAILY Ezetimibe [Zetia] 10 mg PO DAILY Aspirin 325 mg PO DAILY #30 tab Hydrochlorothiazide [hydroCHLOROthiazide] 12.5 mg PO DAILY #30 capsule Metoprolol Tartrate [Lopressor] 25 mg PO DAILY FLUoxetine HCL 40 mg PO DAILY Omeprazole 20 mg PO DAILY Discontinued Rosuvastatin [Crestor] 20 mg PO DAILY Discharge Medication List Ezetimibe [Zetia] 10 mg PO DAILY 09/11/15 [History] Montelukast [Singulair] 10 mg PO DAILY 09/11/15 [History] Aspirin 325 mg PO DAILY #30 tab 09/15/15 [Rx] Hydrochlorothiazide [hydroCHLOROthiazide] 12.5 mg PO DAILY #30 capsule 09/15/15 [Rx] FLUoxetine HCL 40 mg PO DAILY 01/17/21 [History] Metoprolol Tartrate [Lopressor] 25 mg PO DAILY 01/17/21 [History] Omeprazole 20 mg PO DAILY 01/17/21 [History] amLODIPine [Norvasc] 5 mg PO DAILY #30 tab 01/18/21 [Rx] Amoxic-Pot Clav 875-125Mg [Augmentin 875-125] 1 tab PO BID 1 Days #20 tab 01/19/21 [Rx] levETIRAcetam [Keppra] 250 mg PO BID #60 tab 01/19/21 [Rx] Atorvastatin [Lipitor] 80 mg PO HS #30 tab 01/20/21 [Rx] metFORMIN HCL [Glucophage] 500 mg PO BID #60 tab 01/20/21 [Rx] Follow up Appointment(s)/Referral(s): [facility], [NON-STAFF] - Mark Logan MD [STAFF PHYSICIAN] - 01/23/21 1:30 pm (Appointment in [place] office ) Kaleb Butterfield DO [STAFF PHYSICIAN] - 1 Week (Please call office to set up follow up appointment) Patient Instructions/Handouts: Syncope (GEN) Activity/Diet/Wound Care/Special Instructions: Seizure precautions, no driving Diabetes education at PCPs office, new diagnosis diabetes, hemoglobin A1c 10.1 Diet: Consistent carb Discharge Disposition: HOME SELF-CARE
== END 2021-01-19 18:17 | disposition home health service (06) | DRG 101 ==
LOC: EC 15:58 → 3SCARD 17:22
PROVIDERS: ADMIT Family Medicine; ATTEND Family Medicine
DX: R56.9 Unspecified convulsions (principal); F03.90 Unspecified dementia, unspecified severity, without behavioral disturbance, psychotic disturbance, mood disturbance, and anxiety; G93.89 Other specified disorders of brain; E11.9 Type 2 diabetes mellitus without complications; E78.00 Pure hypercholesterolemia, unspecified; J01.30 Acute sphenoidal sinusitis, unspecified; Z20.822 Contact with and (suspected) exposure to COVID-19; I10 Essential (primary) hypertension; I69.320 Aphasia following cerebral infarction; I69.392 Facial weakness following cerebral infarction; F32.9 Major depressive disorder, single episode, unspecified; Z79.82 Long term (current) use of aspirin; Z79.899 Other long term (current) drug therapy; Z88.8 Allergy status to other drugs, medicaments and biological substances; Z86.718 Personal history of other venous thrombosis and embolism; Z87.39 Personal history of other diseases of the musculoskeletal system and connective tissue; Z83.3 Family history of diabetes mellitus; Z82.3 Family history of stroke; Z83.2 Family history of diseases of the blood and blood-forming organs and certain disorders involving the immune mechanism
CPT/HCPCS: 36415; 70450; 70496; 70498; 70551; 71045; 80053; 80061; 81003; 83036; 84484; 85025; 85610; 85730; 87635; 93005; 95816; 99285

== ENCOUNTER 2021-09-23 12:35 | Inpatient (IN) | payer MEDICARE ==
[2021-09-23 13:13] LABS: Glucose,Whole Blood 299 mg/dL (75-99)
[2021-09-23 13:35] LABS: Basophils # (A) 0.1 k/uL (0-0.2); Basophils % (A) 1 %; Eosinophils # (A) 0.3 k/uL (0-0.7); Eosinophils % (A) 3 %; HCT 38.8 % (34.0-46.0); HGB 12.6 gm/dL (11.4-16.0); Lymphocytes # (A) 1.8 k/uL (1.0-4.8); Lymphocytes % (A) 24 %; MCHC 32.6 g/dL (31.0-37.0); MCV 88.8 fL (80.0-100.0); Mean Platelet Volume 7.8; Monocytes # (A) 0.4 k/uL (0-1.0); Monocytes % (A) 5 %; Neutrophils % (A) 65 %; Platelet Count 195 k/uL (150-450); RBC 4.37 m/uL (3.80-5.40); RDW 12.5 % (11.5-15.5); WBC 7.6 k/uL (3.8-10.6)
--- NOTE | 2021-09-23 13:41 | CT ---
EXAMINATION TYPE: CT brain wo con for TPA DATE OF EXAM: 09/23/2021 COMPARISON: 01/17/2021 HISTORY: Neuro deficit TECHNIQUE: CT scan of the head performed without contrast CT DLP: 1147 mGycm Automated exposure control for dose reduction was used. FINDINGS: Large left MCA territory infarction/encephalomalacia changes. Stable slight leftward midline shift by 5 mm. No acute hemorrhage seen. A patchy low-attenuation in the periventricular region likely on the basis of chronic microvascular ischemic changes, no significant change. Mild leftward exvacuodilatat ion secondary to encephalomalacia without significant change. Lay-white matter differentiation is pr eserved other than above. Is also mild brain volume loss. No acute orbital, osseous or soft tissue abnormalities seen. No mastoid air cell effusion or paranasal sinus abnormal opacification. Atherosclerotic calcifications are seen in the intracranial internal carotid arteries and vertebral a rteries. IMPRESSION: 1. REMOTE LEFT MCA TERRITORY INFARCTION. 2. STABLE LEFTWARD MIDLINE SHIFT ABOUT 5 MM. 3. NO ACUTE INTRACRANIAL HEMORRHAGE. 4. CHRONIC PARENCHYMAL AND BRAIN VOLUME LOSS CHANGES.
--- NOTE | 2021-09-23 13:42 | ED ---
Neuro HPI - General Chief Complaint: Neuro Symptoms/Deficit Stated Complaint: Neuro Symptoms Time Seen by Provider: 09/23/21 12:40 Source: family, EMS Mode of arrival: EMS Limitations: altered mental status, physical limitation - History of Present Illness Is the patient presenting with stroke symptoms?: Yes Initial Comments: 80-year-old female with past medical history of CVA and chronic aphasia presents to the emergency department with new onset right-sided weakness. EMS report that symptoms started acutely around 12:15 PM. History from EMS is that the patient had acute weakness on the right side which was new compared to the patient's previous deficits. She also had some confusion was not answering questions appropriately. Patient was hypertensive and hyperglycemic en route to the hospital. Granddaughter presents to the bedside and states that her grandmother was walking around the house and then slumped down in her chair. She seemed globally confused. She states the weakness on her right side is chronic in addition to her chronic aphasia. She is not on any blood thinners. No recent illnesses or head trauma. No other alleviating, precipitating or modifying factors. - Related Data Home Medications: Home Medications Medication Instructions Recorded Confirmed Ezetimibe [Zetia] 10 mg PO DAILY 09/11/15 09/23/21 Montelukast [Singulair] 10 mg PO DAILY 09/11/15 09/23/21 FLUoxetine HCL 40 mg PO DAILY 01/17/21 09/23/21 Metoprolol Tartrate [Lopressor] 25 mg PO DAILY 01/17/21 09/23/21 Omeprazole 20 mg PO DAILY 01/17/21 09/23/21 Rosuvastatin [Crestor] 20 mg PO DAILY 09/23/21 09/23/21 metFORMIN HCL [Glucophage] 1,000 mg PO BID 09/23/21 09/23/21 Previous Rx's Medication Instructions Recorded Aspirin 325 mg PO DAILY #30 tab 09/15/15 Hydrochlorothiazide 12.5 mg PO DAILY #30 capsule 09/15/15 [hydroCHLOROthiazide] Allergies/Adverse Reactions: Allergies Allergy/AdvReac Type Severity Reaction Status Date / Time loratadine Allergy Unknown Verified 09/23/21 13:31 pseudoephedrine Allergy Unknown Verified 09/23/21 13:31 Decongestants Allergy Unknown Uncoded 09/23/21 13:32 Review of Systems ROS Statement: Those systems with pertinent positive or pertinent negative responses have been documented in the HPI. ROS Other: All systems not noted in ROS Statement are negative. General Exam Limitations: altered mental status, physical limitation General appearance: alert, in no apparent distress Head exam: Present: atraumatic, normocephalic, normal inspection Eye exam: Present: normal appearance, PERRL, EOMI. Absent: scleral icterus, conjunctival injection, periorbital swelling ENT exam: Present: normal exam, mucous membranes moist Respiratory exam: Present: normal lung sounds bilaterally. Absent: respiratory distress, wheezes, rales, rhonchi, stridor Cardiovascular Exam: Present: regular rate, normal rhythm, normal heart sounds. Absent: systolic murmur, diastolic murmur, rubs, gallop, clicks GI/Abdominal exam: Present: soft, normal bowel sounds. Absent: distended, tenderness, guarding, rebound, rigid Extremities exam: Present: other (4/5 strength rue and rle) Neurological exam: Present: alert, CN II-XII intact, other (severe aphasia) Stroke MDM - Lab Data Result diagrams: 09/23/21 13:05 09/23/21 13:05 Lab Results 09/23/21 09/23/21 09/23/21 Range/Units 12:46 13:05 13:05 WBC 7.6 (3.8-10.6) k/uL RBC 4.37 (3.80-5.40) m/uL Hgb 12.6 (11.4-16.0) gm/dL Hct 38.8 (34.0-46.0) % MCV 88.8 (80.0-100.0) fL MCH 29.0 (25.0-35.0) pg MCHC 32.6 (31.0-37.0) g/dL RDW 12.5 (11.5-15.5) % Plt Count 195 (150-450) k/uL MPV 7.8 Neutrophils % 65 % Lymphocytes % 24 % Monocytes % 5 % Eosinophils % 3 % Basophils % 1 % Neutrophils # 5.0 (1.3-7.7) k/uL Lymphocytes # 1.8 (1.0-4.8) k/uL Monocytes # 0.4 (0-1.0) k/uL Eosinophils # 0.3 (0-0.7) k/uL Basophils # 0.1 (0-0.2) k/uL PT 9.9 (9.0-12.0) sec INR 0.9 (<1.2) APTT 19.1 L (22.0-30.0) sec Sodium (137-145) mmol/L Potassium (3.5-5.1) mmol/L Chloride (98-107) mmol/L Carbon Dioxide (22-30) mmol/L Anion Gap mmol/L BUN (7-17) mg/dL Creatinine (0.52-1.04) mg/dL Est GFR (CKD-EPI)AfAm (>60 ml/min/1.73 sqM) Est GFR (CKD-EPI)NonAf (>60 ml/min/1.73 sqM) Glucose (74-99) mg/dL POC Glucose (mg/dL) 299 H (75-99) mg/dL POC Glu Kier Hand GLEN Ciara Thakkar Lactic Ac Sepsis Rflx Plasma Lactic Acid Ray (0.7-2.0) mmol/L Calcium (8.4-10.2) mg/dL Total Bilirubin (0.2-1.3) mg/dL AST (14-36) U/L ALT (4-34) U/L Alkaline Phosphatase (38-126) U/L Troponin I (0.000-0.034) ng/mL Total Protein (6.3-8.2) g/dL Albumin (3.5-5.0) g/dL TSH (0.465-4.680) mIU/L Urine Color Urine Appearance (Clear) Urine pH (5.0-8.0) Ur Specific [place] (1.001-1.035) Urine Protein (Negative) Urine Glucose (UA) (Negative) Urine Ketones (Negative) Urine Blood (Negative) Urine Nitrite (Negative) Urine Bilirubin (Negative) Urine Urobilinogen (<2.0) mg/dL Ur Leukocyte Esterase (Negative) Urine RBC (0-5) /hpf Urine WBC (0-5) /hpf Ur Squamous Epith Cells (0-4) /hpf Urine Bacteria (None) /hpf Hyaline Casts (0-2) /lpf Urine Mucus (None) /hpf Coronavirus (PCR) (Not Detectd) 09/23/21 09/23/21 09/23/21 Range/Units 13:05 13:05 13:05 WBC (3.8-10.6) k/uL RBC (3.80-5.40) m/uL Hgb (11.4-16.0) gm/dL Hct (34.0-46.0) % MCV (80.0-100.0) fL MCH (25.0-35.0) pg MCHC (31.0-37.0) g/dL RDW (11.5-15.5) % Plt Count (150-450) k/uL MPV Neutrophils % % Lymphocytes % % Monocytes % % Eosinophils % % Basophils % % Neutrophils # (1.3-7.7) k/uL Lymphocytes # (1.0-4.8) k/uL Monocytes # (0-1.0) k/uL Eosinophils # (0-0.7) k/uL Basophils # (0-0.2) k/uL PT (9.0-12.0) sec INR (<1.2) APTT (22.0-30.0) sec Sodium 137 (137-145) mmol/L Potassium 4.2 (3.5-5.1) mmol/L Chloride 102 (98-107) mmol/L Carbon Dioxide 27 (22-30) mmol/L Anion Gap 8 mmol/L BUN 13 (7-17) mg/dL Creatinine 0.65 (0.52-1.04) mg/dL Est GFR (CKD-EPI)AfAm >90 (>60 ml/min/1.73 sqM) Est GFR (CKD-EPI)NonAf 84 (>60 ml/min/1.73 sqM) Glucose 298 H (74-99) mg/dL POC Glucose (mg/dL) (75-99) mg/dL POC Glu Kier Hand ID Lactic Ac Sepsis Rflx Plasma Lactic Acid Ray 2.9 H* (0.7-2.0) mmol/L Calcium 8.6 (8.4-10.2) mg/dL Total Bilirubin 0.3 (0.2-1.3) mg/dL AST 46 H (14-36) U/L ALT 33 (4-34) U/L Alkaline Phosphatase 65 (38-126) U/L Troponin I (0.000-0.034) ng/mL Total Protein 6.0 L (6.3-8.2) g/dL Albumin 3.2 L (3.5-5.0) g/dL TSH 2.240 (0.465-4.680) mIU/L Urine Color Yellow Urine Appearance Clear (Clear) Urine pH 5.5 (5.0-8.0) Ur Specific [place] 1.050 H (1.001-1.035) Urine Protein 1+ H (Negative) Urine Glucose (UA) 4+ H (Negative) Urine Ketones Trace H (Negative) Urine Blood Negative (Negative) Urine Nitrite Negative (Negative) Urine Bilirubin Negative (Negative) Urine Urobilinogen <2.0 (<2.0) mg/dL Ur Leukocyte Esterase Negative (Negative) Urine RBC 2 (0-5) /hpf Urine WBC 2 (0-5) /hpf Ur Squamous Epith Cells 2 (0-4) /hpf Urine Bacteria Rare H (None) /hpf Hyaline Casts 3 H (0-2) /lpf Urine Mucus Occasional H (None) /hpf Coronavirus (PCR) (Not Detectd) 09/23/21 09/23/21 09/23/21 Range/Units 13:05 13:05 14:21 WBC (3.8-10.6) k/uL RBC (3.80-5.40) m/uL Hgb (11.4-16.0) gm/dL Hct (34.0-46.0) % MCV (80.0-100.0) fL MCH (25.0-35.0) pg MCHC (31.0-37.0) g/dL RDW (11.5-15.5) % Plt Count (150-450) k/uL MPV Neutrophils % % Lymphocytes % % Monocytes % % Eosinophils % % Basophils % % Neutrophils # (1.3-7.7) k/uL Lymphocytes # (1.0-4.8) k/uL Monocytes # (0-1.0) k/uL Eosinophils # (0-0.7) k/uL Basophils # (0-0.2) k/uL PT (9.0-12.0) sec INR (<1.2) APTT (22.0-30.0) sec Sodium (137-145) mmol/L Potassium (3.5-5.1) mmol/L Chloride (98-107) mmol/L Carbon Dioxide (22-30) mmol/L Anion Gap mmol/L BUN (7-17) mg/dL Creatinine (0.52-1.04) mg/dL Est GFR (CKD-EPI)AfAm (>60 ml/min/1.73 sqM) Est GFR (CKD-EPI)NonAf (>60 ml/min/1.73 sqM) Glucose (74-99) mg/dL POC Glucose (mg/dL) (75-99) mg/dL POC Glu Kier Hand ID Lactic Ac Sepsis Rflx Y Plasma Lactic Acid Ray (0.7-2.0) mmol/L Calcium (8.4-10.2) mg/dL Total Bilirubin (0.2-1.3) mg/dL AST (14-36) U/L ALT (4-34) U/L Alkaline Phosphatase (38-126) U/L Troponin I <0.012 (0.000-0.034) ng/mL Total Protein (6.3-8.2) g/dL Albumin (3.5-5.0) g/dL TSH (0.465-4.680) mIU/L Urine Color Urine Appearance (Clear) Urine pH (5.0-8.0) Ur Specific [place] (1.001-1.035) Urine Protein (Negative) Urine Glucose (UA) (Negative) Urine Ketones (Negative) Urine Blood (Negative) Urine Nitrite (Negative) Urine Bilirubin (Negative) Urine Urobilinogen (<2.0) mg/dL Ur Leukocyte Esterase (Negative) Urine RBC (0-5) /hpf Urine WBC (0-5) /hpf Ur Squamous Epith Cells (0-4) /hpf Urine Bacteria (None) /hpf Hyaline Casts (0-2) /lpf Urine Mucus (None) /hpf Coronavirus (PCR) Not Detected (Not Detectd) - Medical Decision Making Upon arrival patient was placed in a trauma 2. Thorough history and physical exam was performed. NIH is assessed and does have a score of 11. Some of these deficits appear to be old according to the granddaughter. Due to her confusion she is sent over for CT of her brain. CT angiography performed. Laboratory studies reviewed. Patient does have a lactic acidosis of 2.9. Glucose of 298. CTs are reviewed. Demonstrates remote left MCA infarction. Stable leftward midline shift of 5 mm. No acute hemorrhage. Chronic volume loss. CT angiography demonstrates moderate severe stenosis of the M2 segment of the right MCA. 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 Mild narrowing of the bilateral common carotid. These findings have been reviewed by Dr. Jorgensen. Patient will not be TPA at this time as granddaughter states that her weakness is all at baseline. Patient given an aspirin and a statin and will be admitted for neurology consultation. Spoke with Dr. diez who agreed to admit the patient 09/23/21 16:14 EKG demonstrated normal sinus rhythm with a ventricular rate of 78. [place] interval 184. QRS 80. QTC of 462. No acute ST segment elevations or depressions co ncerning for ischemic changes Past Medical History Past Medical History: Deep Vein Thrombosis (DVT), Hypertension, Unable to Obtain Additional Past Medical History / Comment(s): Altered mental status patient unable to answer questions message left at home phone number to call back to help with medical hs and admit info. History of Any Multi-Drug Resistant Organisms: None Reported Past Surgical History: Orthopedic Surgery Past Anesthesia/Blood Transfusion Reactions: Unable to Obtain Past Psychological History: Unable to Obtain Smoking Status: Never smoker Past Alcohol Use History: None Reported Past Drug Use History: Unable to Obtain - Past Family History Father Family Medical History: Diabetes Mellitus Mother Family Medical History: Blood Disorder, CVA/TIA Course Vital Signs 09/23/21 09/23/21 09/23/21 12:37 12:54 13:21 Temperature 98.2 F 98.5 F Pulse Rate 75 68 73 Respiratory 17 18 12 Rate Blood Pressure 134/105 110/68 133/73 O2 Sat by Pulse 95 98 98 Oximetry 09/23/21 09/23/21 09/23/21 14:00 14:14 14:15 Temperature 97.8 F Pulse Rate 78 76 74 Respiratory 18 12 16 Rate Blood Pressure 128/78 106/67 106/67 O2 Sat by Pulse 98 95 94 L Oximetry 09/23/21 09/23/21 09/23/21 14:20 14:25 14:30 Temperature Pulse Rate 72 73 74 Respiratory 15 21 17 Rate Blood Pressure 106/67 106/67 106/67 O2 Sat by Pulse 99 99 99 Oximetry 09/23/21 09/23/21 09/23/21 14:35 14:40 14:45 Temperature Pulse Rate 76 71 71 Respiratory 25 H 13 16 Rate Blood Pressure 106/67 106/67 106/67 O2 Sat by Pulse 100 99 95 Oximetry 09/23/21 09/23/21 09/23/21 14:50 14:55 15:00 Temperature Pulse Rate 66 64 65 Respiratory 13 17 16 Rate Blood Pressure 106/67 106/67 106/67 O2 Sat by Pulse 95 97 99 Oximetry 09/23/21 09/23/21 09/23/21 15:05 15:10 15:15 Temperature Pulse Rate 65 66 66 Respiratory 16 17 17 Rate Blood Pressure 119/69 119/69 119/69 O2 Sat by Pulse 97 81 L 98 Oximetry 09/23/21 09/23/21 09/23/21 15:20 15:25 15:30 Temperature Pulse Rate 67 68 66 Respiratory 16 9 L 17 Rate Blood Pressure 119/69 119/69 119/69 O2 Sat by Pulse 99 100 99 Oximetry 09/23/21 09/23/21 15:35 15:40 Temperature Pulse Rate 68 79 Respiratory 17 16 Rate Blood Pressure 119/69 119/69 O2 Sat by Pulse 100 99 Oximetry - Reevaluation(s) Reevaluation #1: Spoke with Dr. Whaley. Patient will not be a TPA candidate as her right-sided weakness and speech difficulties are chronic. 09/23/21 13:06 Critical Care Time Critical Care Time: Yes Critical Care Time: 32 minutes for code stroke activation Disposition Clinical Impression: History of CVA with residual deficit, Acute encephalopathy Disposition: ADMITTED IP TO THIS [facility] Condition: Stable Is patient prescribed a controlled substance at d/c from ED?: No Decision to Admit Reason: Admit from EC Decision Date: 09/23/21 Decision Time: 15:46
[2021-09-23 13:52] LABS: ALT 33 U/L (4-34); AST 46 U/L (14-36); African American GFR (CKD) >90 (>60 ml/min/1.73 sqM); Albumin 3.2 g/dL (3.5-5.0); Alkaline Phosphatase 65 U/L (38-126); Anion Gap 8 mmol/L; Blood Urea Nitrogen 13 mg/dL (7-17); Calcium 8.6 mg/dL (8.4-10.2); Carbon Dioxide 27 mmol/L (22-30); Chloride 102 mmol/L (98-107); Glucose 298 mg/dL (74-99); INR 0.9 (<1.2); Non-African American GFR(CKD) 84 (>60 ml/min/1.73 sqM); Potassium 4.2 mmol/L (3.5-5.1); Prothrombin Time 9.9 sec (9.0-12.0); Sodium 137 mmol/L (137-145); Total Bilirubin 0.3 mg/dL (0.2-1.3)
[2021-09-23 13:56] LABS: Partial Thromboplastin Time 19.1 sec (22.0-30.0)
--- NOTE | 2021-09-23 13:58 | CT ---
EXAMINATION TYPE: CT angio head neck DATE OF EXAM: 09/23/2021 HISTORY: neuro deficits, history of stroke COMPARISON: 01/17/2021 CT DLP: 678.1 mGycm. Automated Exposure Control for Dose Reduction was Utilized. TECHNIQUE: CTA scan of the neck is performed with IV Contrast, patient injected with 65 mL of Isovue 370, axial images are obtained, coronal and sagittal reformatted images are reviewed. 3D reconstruct ed images are created on an independent workstation and reviewed. FINDINGS: Carotid/Vascular Structures: Scattered calcifications are seen in the wall of the intrathoracic aorta. The right brachiocephalic a rtery is slightly tortuous. The origin of the left subclavian, left common carotid arteries are paten t. A bilateral carotid bifurcation secondary to soft and calcific plaque is seen. Both external carot id arteries are patent proximally. Internal carotid arteries in the neck are patent bilaterally. Both vertebral arteries patent without demonstration of minimal calcific densities in the the V4 segments . There is a 3.5 mm segment of the basilar artery which is severely narrowed. With posterior cerebral arteries are patent. Both anterior cerebral arteries are patent. There is complete occlusion of the left MCA M1 segment similar to prior. Distal MCA left-sided segments are faintly attenuating similar to prior study likely from collateral and/or backfilling. There is mild to moderate narrowing of the right side M2 segment of the MCA. Atherosclerotic calcifications are seen in the intracranial interna l carotid arteries. The deep venous sinuses are grossly patent. Other: Parenchymal findings similar to noncontrast CT head from the same day refer to separate report . Soft tissue opacity projects over the right lateral aspect of the right hemithorax incompletely evalu ated recommend correlation with chest radiograph. Thyroid gland is enlarged. Small nodules seen in the left thyroid lobe. No enlarged cervical lymph nodes seen. Severe degenerative changes are present in the included spine. IMPRESSION: 1. Chronic left M1 MCA occlusion. 2. Moderate severe stenosis of the M2 segment of the right MCA, slightly increased compared to prior, right MCA is not completely occluded. 3. Severe stenosis of a 4 mm segment of the basilar artery, progressed compared to prior. The basilar artery is not completely occluded. 4. Mild narrowing of the bilateral common carotid artery bifurcation. 4. Soft tissue-like opacity in the right hemithorax incompletely evaluated recommend correlation with frontal chest radiograph. NASCET criteria was used in interpretation of this exam?
--- NOTE | 2021-09-23 14:52 | XR ---
EXAMINATION TYPE: XR chest 2V DATE OF EXAM: 09/23/2021 COMPARISON: 01/17/2021 HISTORY: 80-year-old female confusion, altered mental status TECHNIQUE: AP and lateral views FINDINGS: Low lung volumes. Accentuated vascular markings. Heart mildly enlarged. Diffuse interstitial prominen ce. No pleural effusion. No james consolidation. Old healed right-sided rib fracture deformity. Degen erative changes (right shoulders. IMPRESSION: Hypoventilatory changes with mild cardiomegaly and interstitial prominence. Correlate to exclude mild pulmonary vascular congestion.
[2021-09-23] MEDS ORDERED: ASPIRIN 325 MG TAB PO STA (15:47)
[2021-09-23 17:13] LABS: Appearance,Urine Clear (Clear); Bacteria,Urine Rare /hpf; Bilirubin,Urine Negative (Negative); Blood,Urine Negative (Negative); Color,Urine Yellow; Glucose,Urine (UA) 4+ (Negative); Hyaline Casts,Urine 3 /lpf (0-2); Ketones,Urine Trace (Negative); Leukocyte Esterase,Urine Negative (Negative); Mucus,Urine Occasional /hpf; Nitrite,Urine Negative (Negative); PH, Urine 5.5 (5.0-8.0); Protein,Urine 1+ (Negative); RBC,Urine 2 /hpf (0-5); Squamous Epithelial Cell,Urine 2 /hpf (0-4); Urobilinogen,Urine <2.0 mg/dL (<2.0); WBC,Urine 2 /hpf (0-5)
[2021-09-23] MEDS: ATORVASTATIN 40 MG TAB PO SCH (17:26)
[2021-09-23] MEDS: SODIUM CHLORIDE 0.9% 1,000 ML IV SCH (17:30)
[2021-09-23 20:55] LABS: Glucose,Whole Blood 210 mg/dL (75-99)
[2021-09-23] MEDS ORDERED: HEPARIN SODIUM,PORCINE/PF 5,000 UNIT/0.5 ML SYRINGE SQ SCH (21:00)
[2021-09-23] MEDS: INSULIN ASPART (NovoLOG) 100 UNIT/ML VIAL SQ SCH (21:27)
[2021-09-23] MEDS: FAMOTIDINE 20 MG/2 ML VIAL IV SCH (21:28)
[2021-09-24 02:48] LABS: Basophils # (A) 0.1 k/uL (0-0.2); Basophils % (A) 1 %; Eosinophils # (A) 0.2 k/uL (0-0.7); Eosinophils % (A) 3 %; HGB 11.7 gm/dL (11.4-16.0); Lymphocytes # (A) 2.1 k/uL (1.0-4.8); Lymphocytes % (A) 26 %; MCH 29.7 pg (25.0-35.0); MCHC 33.2 g/dL (31.0-37.0); MCV 89.3 fL (80.0-100.0); Mean Platelet Volume 8.3; Monocytes # (A) 0.4 k/uL (0-1.0); Monocytes % (A) 5 %; Neutrophils # (A) 5.2 k/uL (1.3-7.7); Neutrophils % (A) 64 %; Platelet Count 190 k/uL (150-450); RBC 3.92 m/uL (3.80-5.40); RDW 12.7 % (11.5-15.5); WBC 8.1 k/uL (3.8-10.6)
[2021-09-24 03:04] LABS: African American GFR (CKD) >90 (>60 ml/min/1.73 sqM); Anion Gap 5 mmol/L; Blood Urea Nitrogen 15 mg/dL (7-17); Calcium 8.6 mg/dL (8.4-10.2); Carbon Dioxide 27 mmol/L (22-30); Chloride 105 mmol/L (98-107); Glucose 171 mg/dL (74-99); Magnesium 1.9 mg/dL (1.6-2.3); Non-African American GFR(CKD) 87 (>60 ml/min/1.73 sqM); Potassium 3.9 mmol/L (3.5-5.1); Sodium 137 mmol/L (137-145)
[2021-09-24 06:24] LABS: Glucose,Whole Blood 136 mg/dL (75-99)
[2021-09-24] MEDS: INSULIN ASPART (NovoLOG) 100 UNIT/ML VIAL SQ SCH ×5 (06:41→20:21)
[2021-09-24] MEDS: SODIUM CHLORIDE 0.9% 1,000 ML IV SCH ×3 (06:42→17:30)
[2021-09-24] MEDS: ASPIRIN 325 MG TAB PO SCH (08:33)
[2021-09-24] MEDS: ATORVASTATIN 40 MG TAB PO SCH (08:33)
[2021-09-24] MEDS: EZETIMIBE 10 MG TAB PO SCH (08:33)
[2021-09-24] MEDS: FAMOTIDINE 20 MG/2 ML VIAL IV SCH ×2 (08:33→20:20)
[2021-09-24] MEDS: levETIRAcetam 500 MG TAB PO SCH ×2 (08:44→20:20)
[2021-09-24 09:58] LABS: Chol/HDL Ratio 6.01 Ratio; LDL Cholesterol,Calculated 115.6 mg/dL (0.0-131.0)
--- NOTE | 2021-09-24 10:01 | P.HPIM ---
History of Present Illness This is a pleasant 80 years old female with past medical history of Deep Vein Thrombosis on anticoagulation, Hypertension, hyperlipidemia, GERD Patient could not provide information so it was obtained from the chart, staff. Presents with altered mental status, at the beginning thought it was stroke for right-sided weakness and aphasia however her daughter came in N stated that this is old symptoms and signs and she is here for altered mental status. However when I saw the patient this morning she is fully awake and interactive however she talks with non-understandable, non-Chinese works. However she is able to follow commands. She couldn't point to her left hip area when asked if she is in pain. She moves both upper and lower extremities equally. Meningeal signs are absent. No facial diffusion. Patient looks like she has expressive aphasia which limits history taken Vitas looks stable and patient's saturation 98% on room air. She is afebrile. Labs including CBC, BMP are unremarkable. Glucose slightly elevated at 171 and 136. Lactic acid is elevated 2.6 and 2.5. Magnesium 1.9. Liver enzymes not elevated significantly. TSH is normal at 2.2. Troponin is negative less than 0.012. EKG: Normal sinus rhythm at [address]-T changes and QTC 462 Chest x-ray: Hypoventilatory changes with mild cardiomegaly and interstitial prominence. Chondral related to exclude mild pulmonary vascular congestion CT of the brain, remote left MCA territory infarction. Stable left towards mental shift about 5 mm. No acute intracranial hemorrhage. Chronic brain volume loss by radiologist CTA of the brain and neck. Chronic left MCA occlusion. Moderate to severe stenosis of M2 segment of the right MCA was slightly increased compared to prior exam. Severe stenosis of basilar artery segment Soft tissue like opacity in the right hemithorax incompletely evaluated recommend correlations with frontal chest radiograph. Urine analysis showed a glucose urea and constricted sample Coronavirus not detected in emergency room patient was started on aspirin 325 mg and normal saline I discussed the case with the neurology service, most likely the patient has seizure which is highly suspected. EKG will be ordered and Keppra dose will be increased Review of Systems n/a patient with expressive aphasia Past Medical History Past Medical History: Deep Vein Thrombosis (DVT), Hypertension, Unable to Obtain Additional Past Medical History / Comment(s): Altered mental status patient unable to answer questions message left at home phone number to call back to help with medical hs and admit info. History of Any Multi-Drug Resistant Organisms: None Reported Past Surgical History: Orthopedic Surgery Past Anesthesia/Blood Transfusion Reactions: Unable to Obtain Past Psychological History: Unable to Obtain Smoking Status: Never smoker Past Alcohol Use History: None Reported Past Drug Use History: Unable to Obtain - Past Family History Father Family Medical History: Diabetes Mellitus Mother Family Medical History: Blood Disorder, CVA/TIA Medications and Allergies Home Medications Medication Instructions Recorded Confirmed Type Ezetimibe [Zetia] 10 mg PO DAILY 09/11/15 09/23/21 History Montelukast [Singulair] 10 mg PO DAILY 09/11/15 09/23/21 History Aspirin 325 mg PO DAILY #30 tab 09/15/15 09/23/21 Rx Hydrochlorothiazide 12.5 mg PO DAILY #30 capsule 09/15/15 09/23/21 Rx [hydroCHLOROthiazide] FLUoxetine HCL 40 mg PO DAILY 01/17/21 09/23/21 History Metoprolol Tartrate [Lopressor] 25 mg PO DAILY 01/17/21 09/23/21 History Omeprazole 20 mg PO DAILY 01/17/21 09/23/21 History Rosuvastatin [Crestor] 20 mg PO DAILY 09/23/21 09/23/21 History metFORMIN HCL [Glucophage] 1,000 mg PO BID 09/23/21 09/23/21 History Allergies Allergy/AdvReac Type Severity Reaction Status Date / Time loratadine Allergy Unknown Verified 09/23/21 13:31 pseudoephedrine Allergy Unknown Verified 09/23/21 13:31 Decongestants Allergy Unknown Uncoded 09/23/21 13:32 Physical Exam Vitals: Vital Signs Temp Pulse Pulse Resp BP BP Pulse Ox 09/24/21 04:00 98.9 F 65 18 136/81 98 09/24/21 00:00 98.0 F 68 18 96/57 93 L 09/23/21 20:00 98.0 F 70 18 103/63 93 L 09/23/21 18:41 98.3 F 72 16 126/61 96 09/23/21 15:40 79 16 119/69 99 09/23/21 15:35 68 17 119/69 100 09/23/21 15:30 66 17 119/69 99 09/23/21 15:25 68 9 L 119/69 100 09/23/21 15:20 67 16 119/69 99 09/23/21 15:15 66 17 119/69 98 09/23/21 15:10 66 17 119/69 81 L 09/23/21 15:05 65 16 119/69 97 09/23/21 15:00 65 16 106/67 99 09/23/21 14:55 64 17 106/67 97 09/23/21 14:50 66 13 106/67 95 09/23/21 14:45 71 16 106/67 95 09/23/21 14:40 71 13 106/67 99 09/23/21 14:35 76 25 H 106/67 100 09/23/21 14:30 74 17 106/67 99 09/23/21 14:25 73 21 106/67 99 09/23/21 14:20 72 15 106/67 99 09/23/21 14:15 74 16 106/67 94 L 09/23/21 14:14 76 12 106/67 95 09/23/21 14:00 97.8 F 78 18 128/78 98 09/23/21 13:21 73 12 133/73 98 09/23/21 12:54 98.5 F 68 18 110/68 98 09/23/21 12:37 98.2 F 75 17 134/105 95 Intake and Output 09/23/21 09/24/21 09/24/21 22:59 06:59 14:59 Output Total 375 Balance -375 Output: Urine 375 Other: # Voids 1 Weight 108.862 kg GENERAL: The patient is alert and oriented x3, not in any acute distress. Well developed, well nourished. HEENT: Pupils are round and equally reacting to light. EOMI. No scleral icterus. No conjunctival pallor. Normocephalic, atraumatic. No pharyngeal erythema. No thyromegaly. CARDIOVASCULAR: S1 and S2 present. No murmurs, rubs, or gallops. PULMONARY: Chest is clear to auscultation, no wheezing or crackles. ABDOMEN: Soft, nontender, nondistended, normoactive bowel sounds. No palpable organomegaly. MUSCULOSKELETAL: No joint swelling or deformity. EXTREMITIES: No cyanosis, clubbing, or pedal edema. NEUROLOGICAL: Gross neurological examination did not reveal any focal deficits. SKIN: No rashes. No petechiae Results CBC & Chem 7: 09/24/21 02:35 09/24/21 02:35 Labs: Abnormal Lab Results - Last 24 Hours (Table) 09/23/21 09/23/21 09/23/21 Range/Units 12:46 13:05 13:05 APTT 19.1 L (22.0-30.0) sec Glucose (74-99) mg/dL POC Glucose (mg/dL) 299 H (75-99) mg/dL Plasma Lactic Acid Ray (0.7-2.0) mmol/L AST (14-36) U/L Total Protein (6.3-8.2) g/dL Albumin (3.5-5.0) g/dL Ur Specific [place] 1.050 H (1.001-1.035) Urine Protein 1+ H (Negative) Urine Glucose (UA) 4+ H (Negative) Urine Ketones Trace H (Negative) Urine Bacteria Rare H (None) /hpf Hyaline Casts 3 H (0-2) /lpf Urine Mucus Occasional H (None) /hpf 09/23/21 09/23/21 09/23/21 Range/Units 13:05 13:05 16:59 APTT (22.0-30.0) sec Glucose 298 H (74-99) mg/dL POC Glucose (mg/dL) (75-99) mg/dL Plasma Lactic Acid Ray 2.9 H* 3.8 H* (0.7-2.0) mmol/L AST 46 H (14-36) U/L Total Protein 6.0 L (6.3-8.2) g/dL Albumin 3.2 L (3.5-5.0) g/dL Ur Specific [place] (1.001-1.035) Urine Protein (Negative) Urine Glucose (UA) (Negative) Urine Ketones (Negative) Urine Bacteria (None) /hpf Hyaline Casts (0-2) /lpf Urine Mucus (None) /hpf 09/23/21 09/23/21 09/23/21 Range/Units 20:10 20:53 23:17 APTT (22.0-30.0) sec Glucose (74-99) mg/dL POC Glucose (mg/dL) 210 H (75-99) mg/dL Plasma Lactic Acid Ray 3.8 H* 2.6 H* (0.7-2.0) mmol/L AST (14-36) U/L Total Protein (6.3-8.2) g/dL Albumin (3.5-5.0) g/dL Ur Specific [place] (1.001-1.035) Urine Protein (Negative) Urine Glucose (UA) (Negative) Urine Ketones (Negative) Urine Bacteria (None) /hpf Hyaline Casts (0-2) /lpf Urine Mucus (None) /hpf 09/24/21 09/24/21 09/24/21 Range/Units 02:35 02:35 06:24 APTT (22.0-30.0) sec Glucose 171 H (74-99) mg/dL POC Glucose (mg/dL) 136 H (75-99) mg/dL Plasma Lactic Acid Ray 2.5 H* (0.7-2.0) mmol/L AST (14-36) U/L Total Protein (6.3-8.2) g/dL Albumin (3.5-5.0) g/dL Ur Specific [place] (1.001-1.035) Urine Protein (Negative) Urine Glucose (UA) (Negative) Urine Ketones (Negative) Urine Bacteria (None) /hpf Hyaline Casts (0-2) /lpf Urine Mucus (None) /hpf Assessment and Plan Assessment: Altered mental status, improved, most likely secondary to seizure Expressive aphasia, chronic. No associated weakness on the right side Intracranial artery disease with Chronic left MCA occlusion. Moderate to severe stenosis of M2 segment of the right MCA was slightly increased compared to prio r exam. Severe stenosis of basilar artery segment Hypertension Hyperlipidemia History of GERD History of deep venous thrombosis not on anticoagulation Obesity with BMI of 34.4. Plan: This is pleasant 80 years old female who presents with stroke versus BMS Continue with aspirin Continue gentle hydration increase Keppra dose Neurology consult Vascular team consult Continue gentle hydration Labs and medication were reviewed.. Continue same treatment. Continue with symptomatic treatment. Resume home medication. Monitor lytes and vitals. DVT and GI prophylaxis. Further recommendations depends on the clinical course of the patient DVT prophylaxis: Subcutaneous heparin GI Prophylaxis: Pepcid PT/OT: Pending Prognosis is guarded
[2021-09-24] MEDS ORDERED: levETIRAcetam IV 1,000 MG in SALINE 1 100ML.BAG IVPB STA (10:07)
--- NOTE | 2021-09-24 10:07 | P.CNNES ---
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 Some of the history is obtained from medical record. It seems that the granddaughter notified that the ED team that the patient the was walking around the house then slumped down in her chair and then seemed globally confused. The daughter notified the ED team that the weakness on her right side is chronic in addition to her aphasia. Upon seeing the patient she was unable to provide history. No seizure-like activity noted by the nurse this AM. She is on Keppra 250mg 1 tab bid. Patient is on home medication of aspirin 325mg daily and Crestor 20mg daily. Some of the workup in the hospital consisted of: Initial vital signs his blood pressure 134/105, heart rate of 75, respiratory of 17, temperature of 98.2 Fahrenheit axillary and pulse ox of 95% on 4 L of nasal cannula. CBC with differential is unremarkable Chemistry panel sodium is 137, creatinine is 0.65, initial serum glucose is 298, calcium is 8.6, AST of 46, ALT of 33, TSH is 2.240. Initial Plasma lactic acid vein is 2.9 repeated 3.8 and most recent history 3.6. Santos virus PCR was not detected Urinalysis seems negative for urinary tract infection. CT of the head is reported as remote left MCA territory infarction appeared stable leftward midline shift about 5 mm. No acute intracranial hemorrhage. Chronic parenchymal brain volume loss changes. I personally reviewed the CT of the head and I agree the patient has a large encephalomalacia over the left MCA territory. There is no acute or subacute ischemia and there is no intracranial parenchymal hemorrhage. CT angiography of the head and neck was reported as chronic left MCA occlusion. Moderate severe stenosis over the M2 segment of the right MCA, slightly increased compared to prior Darin right MCA is not completely occluded. Severe stenosis of a 4 mm segment of the basilar artery, progressed compared to prior. The basilar artery is not completely occluded. Moderate narrowing of the bilateral common carotid artery bifurcation. Soft tissue like opacity in the right hemothorax incompletely evaluated recommend correlation with frontal chest radiograph. I personally reviewed the CT angiography and I felt the right MCA seems patent my opinion. Seems to CT angiography per the ED meet team has been reviewed with Dr. Whaley (stroke attending) and the patient is not a TPA candidate since it was felt the weakness is at baseline. Upon reviewing medical record it seems that the patient was seen by Dr. Flores (Neuro-Hospitalist) on 01/20/2021 because of episode of unresponsiveness and some seizure-like activity. Patient had an EEG and it is reported as focal slowing and rhythmic and that a rhythmic delta activity seen in the left frontal temporal gestural focal cortical neuronal dysfunction and the suggest underlying structural abnormality. Background disorganization with asynchronous slowing suggestive of encephalopathy of metabolic, vascular or degenerative causes. No definitive epileptiform was seen. Dr. Rocha felt the patient's episode was highly suggestive of possible seizure started the patient on Keppra 250 [place] 1 tablet twice a day. Patient had MRI of the brain and did not show any acute stroke. And he recommended to continue aspirin 325mg daily and recommended Lipitor 80mg daily. Please refer to his note for further details. Review of Systems Review of system is limited but the pertinent positive and negative as per HPII. Past Medical History Past Medical History: Deep Vein Thrombosis (DVT), Hypertension, Unable to Obtain Additional Past Medical History / Comment(s): Altered mental status patient unable to answer questions message left at home phone number to call back to help with medical hs and admit info. History of Any Multi-Drug Resistant Organisms: None Reported Past Surgical History: Orthopedic Surgery Past Anesthesia/Blood Transfusion Reactions: Unable to Obtain Past Psychological History: Unable to Obtain Smoking Status: Never smoker Past Alcohol Use History: None Reported Past Drug Use History: Unable to Obtain - Past Family History Father Family Medical History: Diabetes Mellitus Mother Family Medical History: Blood Disorder, CVA/TIA Medications and Allergies Home Medications Medication Instructions Recorded Confirmed Type Ezetimibe [Zetia] 10 mg PO DAILY 09/11/15 09/23/21 History Montelukast [Singulair] 10 mg PO DAILY 09/11/15 09/23/21 History Aspirin 325 mg PO DAILY #30 tab 09/15/15 09/23/21 Rx Hydrochlorothiazide 12.5 mg PO DAILY #30 capsule 09/15/15 09/23/21 Rx [hydroCHLOROthiazide] FLUoxetine HCL 40 mg PO DAILY 01/17/21 09/23/21 History Metoprolol Tartrate [Lopressor] 25 mg PO DAILY 01/17/21 09/23/21 History Omeprazole 20 mg PO DAILY 01/17/21 09/23/21 History Rosuvastatin [Crestor] 20 mg PO DAILY 09/23/21 09/23/21 History metFORMIN HCL [Glucophage] 1,000 mg PO BID 09/23/21 09/23/21 History Allergies Allergy/AdvReac Type Severity Reaction Status Date / Time loratadine Allergy Unknown Verified 09/23/21 13:31 pseudoephedrine Allergy Unknown Verified 09/23/21 13:31 Decongestants Allergy Unknown Uncoded 09/23/21 13:32 Physical Examination - Vital Signs Vital Signs: Vital Signs Temp Pulse Pulse Resp BP BP Pulse Ox 09/24/21 04:00 98.9 F 65 18 136/81 98 09/24/21 00:00 98.0 F 68 18 96/57 93 L 09/23/21 20:00 98.0 F 70 18 103/63 93 L 09/23/21 18:41 98.3 F 72 16 126/61 96 09/23/21 15:40 79 16 119/69 99 09/23/21 15:35 68 17 119/69 100 09/23/21 15:30 66 17 119/69 99 09/23/21 15:25 68 9 L 119/69 100 09/23/21 15:20 67 16 119/69 99 09/23/21 15:15 66 17 119/69 98 09/23/21 15:10 66 17 119/69 81 L 09/23/21 15:05 65 16 119/69 97 09/23/21 15:00 65 16 106/67 99 09/23/21 14:55 64 17 106/67 97 09/23/21 14:50 66 13 106/67 95 09/23/21 14:45 71 16 106/67 95 09/23/21 14:40 71 13 106/67 99 09/23/21 14:35 76 25 H 106/67 100 09/23/21 14:30 74 17 106/67 99 09/23/21 14:25 73 21 106/67 99 09/23/21 14:20 72 15 106/67 99 09/23/21 14:15 74 16 106/67 94 L 09/23/21 14:14 76 12 106/67 95 09/23/21 14:00 97.8 F 78 18 128/78 98 09/23/21 13:21 73 12 133/73 98 09/23/21 12:54 98.5 F 68 18 110/68 98 09/23/21 12:37 98.2 F 75 17 134/105 95 Intake and Output 09/23/21 09/24/21 09/24/21 22:59 06:59 14:59 Output Total 375 Balance -375 Output: Urine 375 Other: # Voids 1 Weight 108.862 kg GENERAL: The patient is lying in bed and does not seem in acute distress. CHEST: The heart rate is regular rate rhythm. No murmurs to auscultation. No carotid bruit bilaterally. LUNG: Clear to auscultation bilaterally no wheezing noted throughout. Not labored breathing. ABDOMEN/GI: Bowel sounds present in all 4 quadrants. No tenderness to palpation throughout. NEUROLOGICAL: Somewhat limited because of cooperation. Higher mental function: The patient is awake, alert, oriented to self. She has global aphasia (expressive vs receptive). Is talking jibberish. But is following command to orders and would follow commands to pontomine. No neglect. Cranial nerves: The pupils are round, equal and reactive to light. Visual jo are full to confrontation throughout. Extraocular movement is intact no nystagmus is noted. The facial strength is left nasolabial flattening. No dysarthria is noted. Shoulder shrug is normal bilaterally. Motor: The strength is 5 over 5 throughout. Normal tone and bulk. Cerebellum: Could not assess because of cooperation. Sensation: Could not assess because of coperation. Reflexes (right/left): 1+ Plantars are mute bilaterally. Results - Laboratory Findings CBC and BMP: 09/24/21 02:35 09/24/21 02:35 Abnormal Lab Findings: Abnormal Labs 09/23/21 09/23/21 09/23/21 12:46 13:05 13:05 APTT 19.1 L Glucose POC Glucose (mg/dL) 299 H Plasma Lactic Acid Ray AST Total Protein Albumin Ur Specific [place] 1.050 H Urine Protein 1+ H Urine Glucose (UA) 4+ H Urine Ketones Trace H Urine Bacteria Rare H Hyaline Casts 3 H Urine Mucus Occasional H 09/23/21 09/23/21 09/23/21 13:05 13:05 16:59 APTT Glucose 298 H POC Glucose (mg/dL) Plasma Lactic Acid Ray 2.9 H* 3.8 H* AST 46 H Total Protein 6.0 L Albumin 3.2 L Ur Specific [place] Urine Protein Urine Glucose (UA) Urine Ketones Urine Bacteria Hyaline Casts Urine Mucus 09/23/21 09/23/21 09/23/21 20:10 20:53 23:17 APTT Glucose POC Glucose (mg/dL) 210 H Plasma Lactic Acid Ray 3.8 H* 2.6 H* AST Total Protein Albumin Ur Specific [place] Urine Protein Urine Glucose (UA) Urine Ketones Urine Bacteria Hyaline Casts Urine Mucus 09/24/21 09/24/21 09/24/21 02:35 02:35 06:24 APTT Glucose 171 H POC Glucose (mg/dL) 136 H Plasma Lactic Acid Ray 2.5 H* AST Total Protein Albumin Ur Specific [place] Urine Protein Urine Glucose (UA) Urine Ketones Urine Bacteria Hyaline Casts Urine Mucus 09/24/21 06:59 APTT Glucose POC Glucose (mg/dL) Plasma Lactic Acid Ray 3.6 H* AST Total Protein Albumin Ur Specific [place] Urine Protein Urine Glucose (UA) Urine Ketones Urine Bacteria Hyaline Casts Urine Mucus Assessment and Plan Assessment: * Patient episode of confusion with elevated plasma lactic acid vein is likely break-thru seizure especially with large old left MCA stroke (I feel patient is under-medicated for her seizure). On examination patient had global aphasia (expressive vs receptive) possible result of seizure and on examination patient had no weakness over left side (possibly had Valdo's Paralysis on presentation. * Old left MCA stroke (2014) with residual expressive aphasia. Per ED patient has old left sided weakness (but on Dr. Flores's note on 12/2020 no weakness and on my examination no weakness). * History of likely seizure on 12/2020 * Diabetes Mellitus and presented with sugar in 299 * History of hypertension Plan: I increased the Keppra from 250 mg 1 tablet twice a day to 500 mg 1 tablet twice a day. I loaded the patient Keppra 1000mg once. If patient language does not resolved to pure expressive aphasia or has further confusion episodes recommend routine EEG. Continue aspirin 325 mg daily and continue Lipitor 40 mg daily. Continue neuro checks I'll hold off on getting MRI of the brain at this time Placed on seizure precautions seizure pads Primary team consulted the vascular surgeon team MCA occlusion/stenosis and basilar stenosis. The patient needs to follow up with Dr. Whaley as outpatient for further evaluation. I feel the right MCA reported stenosis is patent in my opinion and would not explain the patient's symptoms off reported right-sided weakness. We'll defer the sugar control to the primary team We'll defer the rest of medical management to primary team Upon discharge the patient needs to follow-up with a neurologist within 1-2 weeks. The plan is discussed with the patient's nurse and the primary team. Thank You for the consultation. Dr. Flores will resume Neurology service tomorrow AM. Darin Lewis M.D. Neuro-Hospitalist Time with Patient: Greater than 30
[2021-09-24] MEDS: HEPARIN SODIUM,PORCINE/PF 5,000 UNIT/0.5 ML SYRINGE SQ SCH ×2 (11:15→20:20)
[2021-09-24 11:55] LABS: Glucose,Whole Blood 161 mg/dL (75-99)
[2021-09-24 17:11] LABS: Glucose,Whole Blood 151 mg/dL (75-99)
[2021-09-24 20:10] LABS: Glucose,Whole Blood 231 mg/dL (75-99)
[2021-09-25] MEDS: SODIUM CHLORIDE 0.9% 1,000 ML IV SCH ×3 (06:08→12:24)
[2021-09-25] MEDS: INSULIN ASPART (NovoLOG) 100 UNIT/ML VIAL SQ SCH ×5 (06:12→21:40)
[2021-09-25 06:18] LABS: Glucose,Whole Blood 128 mg/dL (75-99)
[2021-09-25] MEDS ORDERED: GLIMEPIRIDE 1 MG TAB PO SCH (07:30)
[2021-09-25] MEDS: MONTELUKAST 10 MG TAB PO SCH (09:29)
[2021-09-25] MEDS: levETIRAcetam 500 MG TAB PO SCH ×2 (09:29→21:39)
[2021-09-25] MEDS: ASPIRIN 325 MG TAB PO SCH (09:29)
[2021-09-25] MEDS: FLUoxetine HCL 20 MG CAP PO SCH (09:29)
[2021-09-25] MEDS: METOPROLOL TARTRATE 25 MG TAB PO SCH (09:29)
[2021-09-25] MEDS: ATORVASTATIN 40 MG TAB PO SCH (09:29)
[2021-09-25] MEDS: FAMOTIDINE 20 MG/2 ML VIAL IV SCH ×2 (09:30→21:40)
[2021-09-25] MEDS: HEPARIN SODIUM,PORCINE/PF 5,000 UNIT/0.5 ML SYRINGE SQ SCH ×2 (09:30→21:40)
[2021-09-25] MEDS: hydroCHLOROthiazide 12.5 MG CAP PO SCH (09:31)
[2021-09-25] MEDS: EZETIMIBE 10 MG TAB PO SCH (09:31)
[2021-09-25 12:24] LABS: Glucose,Whole Blood 256 mg/dL (75-99)
--- NOTE | 2021-09-25 15:00 | P.PN ---
Subjective Progress Note Date: 09/25/21 Patient is laying comfortably in the bed. Offers no complaints. Patient continues to be a fluent aphasia. Not able to name, repeat, or follow directions. Objective - Vital Signs Vital signs: Vital Signs Temp 96.4 F L 09/25/21 08:00 Pulse 66 09/25/21 12:00 Resp 16 09/25/21 12:00 BP 147/75 09/25/21 12:00 Pulse Ox 99 09/25/21 12:00 Intake & Output 09/24/21 09/25/21 09/25/21 18:59 06:59 18:59 Intake Total 480 118 Balance 480 118 Intake: Oral 480 118 Other: # Voids 2 2 1 - Exam Patient is alert and awake, very pleasant. Patient has pseudobulbar affect. Sometimes laughs for no reason, sometimes cries. Patient is globally aphasic. Cranial nerves significant for right facial asymmetry. Right pronator drift, but the strength is normal in the arms and legs. Tone and bulk of muscles normal. Sensations cannot be assessed. - Labs CBC & Chem 7: 09/24/21 02:35 09/24/21 02:35 Labs: Abnormal Lab Results - Last 24 Hours (Table) 09/24/21 09/24/21 09/25/21 Range/Units 16:53 20:08 05:50 POC Glucose (mg/dL) 151 H 231 H 128 H (75-99) mg/dL 09/25/21 Range/Units 11:57 POC Glucose (mg/dL) 256 H (75-99) mg/dL Assessment and Plan Assessment: * Probable breakthrough seizure * History of left MCA CVA, with significant fluent aphasia. * History of probable focal seizure on 12/2020 * Diabetes Mellitus * History of hypertension Plan: * Continue aspirin 325 mg daily. * Agree with increasing Keppra to 500 mg twice a day. * Regarding MCA occlusion/stenosis and basilar stenosis, consider patient to follow up with Dr. Whaley as outpatient for further evaluation. * Management of diabetes as per IM. * Telemetry monitoring showing sinus rhythm, sinus bradycardia at around 59-60. * Upon discharge the patient needs to follow-up with a neurologist within 1-2 weeks.
[2021-09-25 17:10] LABS: Glucose,Whole Blood 156 mg/dL (75-99)
--- NOTE | 2021-09-25 19:48 | P.PN ---
Subjective This is a pleasant 80 years old female with past medical history of Deep Vein Thrombosis on anticoagulation, Hypertension, hyperlipidemia, GERD Patient could not provide information so it was obtained from the chart, staff. Presents with altered mental status, at the beginning thought it was stroke for right-sided weakness and aphasia however her daughter came in N stated that this is old symptoms and signs and she is here for altered mental status. However when I saw the patient this morning she is fully awake and interactive however she talks with non-understandable, non-Slovak works. However she is able to follow commands. She couldn't point to her left hip area when asked if she is in pain. She moves both upper and lower extremities equally. Meningeal signs are absent. No facial diffusion. Patient looks like she has expressive aphasia which limits history taken Vitas looks stable and patient's saturation 98% on room air. She is afebrile. Labs including CBC, BMP are unremarkable. Glucose slightly elevated at 171 and 136. Lactic acid is elevated 2.6 and 2.5. Magnesium 1.9. Liver enzymes not elevated significantly. TSH is normal at 2.2. Troponin is negative less than 0.012. EKG: Normal sinus rhythm at [address]-T changes and QTC 462 Chest x-ray: Hypoventilatory changes with mild cardiomegaly and interstitial prominence. Chondral related to exclude mild pulmonary vascular congestion CT of the brain, remote left MCA territory infarction. Stable left towards mental shift about 5 mm. No acute intracranial hemorrhage. Chronic brain volume loss by radiologist CTA of the brain and neck. Chronic left MCA occlusion. Moderate to severe stenosis of M2 segment of the right MCA was slightly increased compared to prior exam. Severe stenosis of basilar artery segment Soft tissue like opacity in the right hemithorax incompletely evaluated recommend correlations with frontal chest radiograph. Urine analysis showed a glucose urea and constricted sample Coronavirus not detected in emergency room patient was started on aspirin 325 mg and normal saline I discussed the case with the neurology service, most likely the patient has seizure which is highly suspected. EKG will be ordered and Keppra dose will be increased 09/25/2021 Patient is fully awake, does not look she's altered mental status however she looks completely confused, she does not look she understands and when I talked to her she talks back with non-understandable words and make noises and sounds like kids. She moves all extremities equally. It looks like this is her baseline related to her vascular dementia versus Alzheimer dementia or combination. Seizure suspected on admission and Keppra dose increased to 500 mg twice a day by neurologist. Vascular surgery consult consult pending Other than that neurology for on the case and she looks like she could be discharged soon Family wanted placement, community mental health social worker on the case Objective - Vital Signs Vital signs: Vital Signs Temp 96.4 F L 09/25/21 08:00 Pulse 72 09/25/21 08:00 Resp 16 09/25/21 08:00 BP 165/76 09/25/21 08:00 Pulse Ox 96 09/25/21 08:00 Intake & Output 09/24/21 09/25/21 09/25/21 18:59 06:59 18:59 Intake Total 480 118 Balance 480 118 Intake: Oral 480 118 Other: # Voids 2 2 1 - Exam -GENERAL: The patient is fully awake , talk in non understandable words, and make gestures with her mouth like small kids, does not follow commands , not in any acute distress. obese HEENT: Pupils are round and equally reacting to light. EOMI. No scleral icterus. No conjunctival pallor. Normocephalic, atraumatic. No pharyngeal erythema. No thyromegaly. CARDIOVASCULAR: S1 and S2 present. No murmurs, rubs, or gallops. PULMONARY: Chest is clear to auscultation, no wheezing or crackles. ABDOMEN: Soft, nontender, nondistended, normoactive bowel sounds. No palpable organomegaly. MUSCULOSKELETAL: No joint swelling or deformity. EXTREMITIES: No cyanosis, clubbing, or pedal edema. -NEUROLOGICAL: Gross neurological examination did not reveal any focal deficits. moves all extremities symmetrically SKIN: No rashes. No petechiae - Labs CBC & Chem 7: 09/24/21 02:35 09/24/21 02:35 Labs: Abnormal Lab Results - Last 24 Hours (Table) 09/24/21 09/24/21 09/24/21 Range/Units 02:35 16:53 20:08 POC Glucose (mg/dL) 151 H 231 H (75-99) mg/dL Hemoglobin A1c 8.2 H (4.0-6.0) % 09/25/21 Range/Units 05:50 POC Glucose (mg/dL) 128 H (75-99) mg/dL Hemoglobin A1c (4.0-6.0) % Assessment and Plan Assessment: Altered mental status, improved, most likely secondary to seizure Expressive aphasia, chronic. No associated weakness on the right side Intracranial artery disease with Chronic left MCA occlusion. Moderate to severe stenosis of M2 segment of the right MCA was slightly increased compared to prior exam. Severe stenosis of basilar artery segment Hypertension Hyperlipidemia History of GERD History of deep venous thrombosis not on anticoagulation Obesity with BMI of 34.4. Plan: This is pleasant 80 years old female who presents with stroke versus BMS Continue with aspirin Discontinue IV fluids. Patient is eating well increase Keppra dose Neurology consult Vascular team consult grab jack worker for placement Labs and medication were reviewed.. Continue same treatment. Continue with symptomatic treatment. Resume home medication. Monitor lytes and vitals. DVT and GI prophylaxis. Further recommendations depends on the clinical course of the patient DVT prophylaxis: Subcutaneous heparin GI Prophylaxis: Pepcid
[2021-09-25 20:28] LABS: Glucose,Whole Blood 178 mg/dL (75-99)
[2021-09-26 06:30] LABS: Glucose,Whole Blood 115 mg/dL (75-99)
[2021-09-26] MEDS: GLIMEPIRIDE 1 MG TAB PO SCH (06:45)
[2021-09-26] MEDS: INSULIN ASPART (NovoLOG) 100 UNIT/ML VIAL SQ SCH ×4 (06:45→21:11)
[2021-09-26] MEDS: HEPARIN SODIUM,PORCINE/PF 5,000 UNIT/0.5 ML SYRINGE SQ SCH ×2 (08:57→21:11)
[2021-09-26] MEDS: levETIRAcetam 500 MG TAB PO SCH ×2 (08:58→21:11)
[2021-09-26] MEDS: MONTELUKAST 10 MG TAB PO SCH (08:58)
[2021-09-26] MEDS: ASPIRIN 325 MG TAB PO SCH (08:58)
[2021-09-26] MEDS: ATORVASTATIN 40 MG TAB PO SCH (08:58)
[2021-09-26] MEDS: FLUoxetine HCL 20 MG CAP PO SCH (08:58)
[2021-09-26] MEDS: METOPROLOL TARTRATE 25 MG TAB PO SCH (08:58)
[2021-09-26] MEDS: FAMOTIDINE 20 MG/2 ML VIAL IV SCH ×2 (08:58→21:11)
[2021-09-26] MEDS: EZETIMIBE 10 MG TAB PO SCH (09:00)
[2021-09-26] MEDS: hydroCHLOROthiazide 12.5 MG CAP PO SCH (09:00)
--- NOTE | 2021-09-26 10:08 | P.GSCN ---
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 The patient presented to the ER after seeming globally confused. She has chronic right-sided weakness and aphasia. We are asked to see the patient regarding her stroke and possible carotid artery stenosis. At the time of my evaluation she is unable to provide history. Is claimed from the chart. CT and examined with the head was performed showing chronic left MCA occlusion with severe stenosis of the M2 segment there is severe stenosis of the basilar artery and some reported narrowing of the carotid bifurcation Past Medical History Past Medical History: Deep Vein Thrombosis (DVT), Hypertension, Unable to Obtain Additional Past Medical History / Comment(s): Altered mental status patient unable to answer questions message left at home phone number to call back to help with medical hs and admit info. History of Any Multi-Drug Resistant Organisms: None Reported Past Surgical History: Orthopedic Surgery Past Anesthesia/Blood Transfusion Reactions: Unable to Obtain Past Psychological History: Unable to Obtain Smoking Status: Never smoker Past Alcohol Use History: None Reported Past Drug Use History: Unable to Obtain - Past Family History Father Family Medical History: Diabetes Mellitus Mother Family Medical History: Blood Disorder, CVA/TIA Medications and Allergies Home Medications Medication Instructions Recorded Confirmed Type Ezetimibe [Zetia] 10 mg PO DAILY 09/11/15 09/23/21 History Montelukast [Singulair] 10 mg PO DAILY 09/11/15 09/23/21 History Aspirin 325 mg PO DAILY #30 tab 09/15/15 09/23/21 Rx Hydrochlorothiazide 12.5 mg PO DAILY #30 capsule 09/15/15 09/23/21 Rx [hydroCHLOROthiazide] FLUoxetine HCL 40 mg PO DAILY 01/17/21 09/23/21 History Metoprolol Tartrate [Lopressor] 25 mg PO DAILY 01/17/21 09/23/21 History Omeprazole 20 mg PO DAILY 01/17/21 09/23/21 History Rosuvastatin [Crestor] 20 mg PO DAILY 09/23/21 09/23/21 History metFORMIN HCL [Glucophage] 1,000 mg PO BID 09/23/21 09/23/21 History Allergies Allergy/AdvReac Type Severity Reaction Status Date / Time loratadine Allergy Unknown Verified 09/23/21 13:31 pseudoephedrine Allergy Unknown Verified 09/23/21 13:31 Decongestants Allergy Unknown Uncoded 09/23/21 13:32 Surgical - Exam Vital Signs Temp Pulse Resp BP Pulse Ox 98.2 F 75 17 134/105 95 09/23/21 12:37 09/23/21 12:37 09/23/21 12:37 09/23/21 12:37 09/23/21 12:37 Gen. is a resting female in no acute distress. HEENT is normocephalic. Heart appears regular at this time. Lungs are clear bilaterally. Abdomen is obese, soft, nontender nondistended. Extremity show no clubbing, cyanosis or edema. Unable to evaluate strength and movement. Results Computed tomography scan is reviewed. Appears more likely there is less than 50% stenosis of the bilateral extra cranial carotid system. - Labs 09/24/21 02:35 09/24/21 02:35 Abnormal Lab Results - Last 24 Hours (Table) 09/25/21 09/25/21 09/25/21 Range/Units 11:57 16:47 20:21 POC Glucose (mg/dL) 256 H 156 H 178 H (75-99) mg/dL 09/26/21 Range/Units 06:06 POC Glucose (mg/dL) 115 H (75-99) mg/dL Assessment and Plan Assessment: Minimal bilateral carotid artery stenosis Previous MCA stroke Plan: Patient's images and histories are reviewed. At this time no further vascular workup or evaluation is necessary, does not appear her carotid artery system is likely the cause of any of her issue at this point. Follow-up with interventional neurology as outpatient
[2021-09-26 11:22] LABS: Glucose,Whole Blood 133 mg/dL (75-99)
[2021-09-26 17:00] LABS: Glucose,Whole Blood 254 mg/dL (75-99)
--- NOTE | 2021-09-26 17:56 | PN ---
PROGRESS NOTE DATE OF SERVICE: 09/26/2021 This 80-year-old woman who was admitted with change in mental status also had possibly expressive aphasia. The patient is being followed by multiple consultants, including neurologist, who is recommending an increase in Keppra and continued monitoring. Otherwise, Dr. Lomas from Vascular Surgery has seen the patient and recommends medical treatment and followup with Interventional Neurology as an outpatient. No chest pain. No palpitation. PHYSICAL EXAMINATION: Patient is conscious, confused. Pulse 67, blood pressure 160/85, respirations 16, temperature 99.1, pulse ox 93% on room air. HEENT: Conjunctivae normal. NECK: No jugular venous distention. CARDIOVASCULAR: S1, S2 muffled. RESPIRATION: Breath sounds diminished at the bases. No rhonchi. No crackles. ABDOMEN: Soft. NERVOUS SYSTEM: Diffusely weak. LABS: Accu-Cheks 135. CBC and BMP noted. ASSESSMENT: 1. Change in mental status, possibly secondary to acute metabolic encephalopathy and breakthrough seizures. 2. Expressive aphasia, chronic. 3. Intracranial disease with chronic left MCA occlusion, moderate to severe stenosis of the M2 segment of the right MCA, slightly increased compared to the prior exam. 4. Severe stenosis of the basal artery segment. 5. Hypertension. 6. Hyperlipidemia. 7. History of gastroesophageal reflux disease. 8. History of deep vein thrombosis, not on anticoagulation. 9. Obesity with body mass index of 34.4. RECOMMENDATIONS AND DISCUSSION: I recommend to continue current medications, continue with the monitoring, symptomatic treatment. PT/OT evaluation, possible ECF rehab. Closely follow with Neurology. Prognosis is guarded because of the multiple complex medical issues, as mentioned earlier. Further recommendations to follow. MMODL / IJN: [id number] /
--- NOTE | 2021-09-26 18:56 | P.PN ---
Subjective Progress Note Date: 09/26/21 Patient is sitting comfortably in the recliner, watching TV. Offers no complaints. Patient continues to be a fluent aphasia. Not able to name, repeat, or follow directions. Objective - Vital Signs Vital signs: Vital Signs Temp 99.1 F 09/26/21 03:54 Pulse 73 09/26/21 16:00 Resp 16 09/26/21 16:00 BP 170/80 09/26/21 16:00 Pulse Ox 96 09/26/21 16:00 Intake & Output 09/25/21 09/26/21 09/26/21 18:59 06:59 18:59 Intake Total 716 360 Output Total 400 Balance 716 -40 Intake: Oral 716 360 Output: Urine 400 Other: # Voids 2 2 - Exam Patient is alert and awake, very pleasant. Patient has fluent aphasia. Cranial nerves significant for right facial asymmetry. Right pronator drift, but the strength is normal in the arms and legs. Tone and bulk of muscles normal. Sensations cannot be assessed. - Labs CBC & Chem 7: 09/24/21 02:35 09/24/21 02:35 Labs: Abnormal Lab Results - Last 24 Hours (Table) 09/25/21 09/26/21 09/26/21 Range/Units 20:21 06:06 11:20 POC Glucose (mg/dL) 178 H 115 H 133 H (75-99) mg/dL 09/26/21 Range/Units 16:59 POC Glucose (mg/dL) 254 H (75-99) mg/dL Assessment and Plan Assessment: * Probable breakthrough seizure * History of left MCA CVA, with significant fluent aphasia. * History of possible focal seizure on 12/2020 * Diabetes Mellitus * History of hypertension Plan: * Patient's granddaughter Mary, who is a caregiver, wanted to discuss with me about her grandmother. I spoke to her on the phone in detail. She still states that patient never had any seizure. She states that on the day of admission, she walked some stairs, did not feel good, sat down in the chair, and was unresponsive, and her right side was tremoring a little "here and there". She believes it was not a seizure, rather it was high sugar producing this event. Patient's granddaughter further states that the event in December 2020 was probably not a seizure, and everyone keeps on saying "a seizure". She states that she witnessed that event also. I told her there are multiple documentation in the electronic records from that admission that patient was unresponsive was shaking, which could possibly be a seizure. Her EEG was also abnormal at that time. Patient's granddaughter states that after that hospitalization, she took her to the primary care physician (never saw a neurologist outpatient), her PCP also believed it was not a seizure and Keppra was discontinued. She does not want her grandmother to be on a medication that she does not need. I informed her that sometimes seizures are not typically grand mal seizures, sometimes it could be focal seizures, which may present like what she has done in the last 2 hospital visits. I informed her that I'll be happy to stop Keppra, but she should be mindful that she may keep on coming back to the hospital if these indeed are focal seizures. At this point we will perform a 2.5 hours EEG to evaluate for interictal epileptiform activity. If the EEG is normal, then we may consider taking her off Keppra, otherwise we will keep her on it. I also informed her that a negative EEG does not rule out a seizure disorder, and would not guarantee that she will never have a seizure in the future. She is agreeing with this plan. Spent 12 minutes on the phone with the patient's granddaughter. * Continue aspirin 325 mg daily. * Continue Keppra to 500 mg twice a day for now. * Management of diabetes as per IM. * Telemetry monitoring in the last 24 hours shows sinus rhythm, PVCs and some pauses. * Upon discharge the patient needs to follow-up with a neurologist within 1-2 weeks.
[2021-09-26 20:02] LABS: Glucose,Whole Blood 166 mg/dL (75-99)
[2021-09-27 06:07] LABS: Glucose,Whole Blood 159 mg/dL (75-99)
[2021-09-27] MEDS: GLIMEPIRIDE 1 MG TAB PO SCH (06:35)
[2021-09-27] MEDS: INSULIN ASPART (NovoLOG) 100 UNIT/ML VIAL SQ SCH ×4 (06:38→20:43)
[2021-09-27 11:24] LABS: Glucose,Whole Blood 222 mg/dL (75-99)
[2021-09-27] MEDS: HEPARIN SODIUM,PORCINE/PF 5,000 UNIT/0.5 ML SYRINGE SQ SCH ×2 (11:31→20:43)
[2021-09-27] MEDS: FAMOTIDINE 20 MG/2 ML VIAL IV SCH ×2 (11:31→20:43)
[2021-09-27] MEDS: ATORVASTATIN 40 MG TAB PO SCH (11:31)
[2021-09-27] MEDS: FLUoxetine HCL 20 MG CAP PO SCH (11:31)
[2021-09-27] MEDS: ASPIRIN 325 MG TAB PO SCH (11:31)
[2021-09-27] MEDS: levETIRAcetam 500 MG TAB PO SCH ×2 (11:36→20:43)
[2021-09-27] MEDS: MONTELUKAST 10 MG TAB PO SCH (11:36)
[2021-09-27] MEDS: EZETIMIBE 10 MG TAB PO SCH (11:37)
[2021-09-27] MEDS: METOPROLOL TARTRATE 25 MG TAB PO SCH (11:37)
[2021-09-27] MEDS: hydroCHLOROthiazide 12.5 MG CAP PO SCH (11:37)
--- NOTE | 2021-09-27 13:33 | P.PN ---
Subjective Progress Note Date: 09/27/21 This is an 80-year-old female who was easily admitted for change in mental status also possibly expressive aphasia and is being closely monitored. Neurology following as well and patient is planned to have a prolonged EEG today and continued on Keppra. Patient will need close outpatient follow-up with interventional neurology in the outpatient setting and possible vascular surgery consult outpatient per Dr. Lomas. Patient continues to be weak with gait dysfunction and will be going to [facility] for continued PT/OT therapy once stabilized and discharged. Patient is afebrile. No reports of chest pain or shortness of breath noted. Review of systems: Unable to complete as patient is confused Active Medications Aspirin (Aspirin 325 Mg Tab) 325 mg PO DAILY [facility] Last Admin: 09/27/21 11:31 Dose: 325 mg Documented by: Atorvastatin Calcium (Atorvastatin 40 Mg Tab) 40 mg PO DAILY [facility] Last Admin: 09/27/21 11:31 Dose: 40 mg Documented by: Ezetimibe (Ezetimibe 10 Mg Tab) 10 mg PO DAILY [facility] Last Admin: 09/27/21 11:37 Dose: 10 mg Documented by: Famotidine (Famotidine 20 Mg/2 Ml Vial) 20 mg IV Q12HR [facility] Last Admin: 09/27/21 11:31 Dose: 20 mg Documented by: Fluoxetine HCl (Fluoxetine Hcl 20 Mg Cap) 40 mg PO DAILY [facility] Last Admin: 09/27/21 11:31 Dose: 40 mg Documented by: Glimepiride (Glimepiride 1 Mg Tab) 2 mg PO AC-BRKFST [facility] Last Admin: 09/27/21 06:35 Dose: 2 mg Documented by: Heparin Sodium (Porcine) (Heparin Sodium,Porcine/Pf 5,000 Unit/0.5 Ml Syringe) 5,000 unit SQ Q12HR [facility] Last Admin: 09/27/21 11:31 Dose: 5,000 unit Documented by: Hydrochlorothiazide (Hydrochlorothiazide 12.5 Mg Cap) 12.5 mg PO DAILY [facility] Last Admin: 09/27/21 11:37 Dose: 12.5 mg Documented by: Insulin Aspart (Insulin Aspart (Novolog) 100 Unit/Ml Vial) 0 unit SQ [facility]; Protocol Last Admin: 09/27/21 11:32 Dose: 3 unit Documented by: Levetiracetam (Levetiracetam 500 Mg Tab) 500 mg PO Q12HR [facility] Last Admin: 09/27/21 11:36 Dose: 500 mg Documented by: Metoprolol Tartrate (Metoprolol Tartrate 25 Mg Tab) 25 mg PO DAILY [facility] Last Admin: 09/27/21 11:37 Dose: 25 mg Documented by: Montelukast Sodium (Montelukast 10 Mg Tab) 10 mg PO DAILY [facility] Last Admin: 09/27/21 11:36 Dose: 10 mg Documented by: PHYSICAL EXAMINATION: GENERAL: The patient is on mechanical ventilation and sedation. Temp is 97.4F, pulse is 61, respirations are 16, blood pressure is 146/67, oxygen saturation is 95% on room air HEENT: Pupils are round and equally reacting to light. EOMI. No scleral icterus. No conjunctival pallor. Normocephalic, atraumatic. No pharyngeal erythema. No thyromegaly. CARDIOVASCULAR: S1 and S2 muffled. PULMONARY: diminished breath sounds bilaterally with a few scattered rhonchi noted.. ABDOMEN: Soft, nontender, nondistended, normoactive bowel sounds. No palpable organomegaly. MUSCULOSKELETAL: No joint swelling or deformity. EXTREMITIES: No cyanosis, clubbing, or pedal edema. NEUROLOGICAL: SKIN: No rashes. Assessment and plan: Change in mental status, possibly secondary to acute metabolic encephalopathy and breakthrough seizures Expressive aphasia, chronic Intracranial disease with chronic left MCA occlusion moderate to severe stenosis of the M2 segment of the right MCA, slightly increased compared to previous exam Severe stenosis of the basal artery segment Taylor hypertension Hyperlipidemia next line history of gastroesophageal reflux disease History of deep vein thrombosis, not on anticoagulation Obesity with a body mass index of 34.4 Plan: Continue with current medications and management with multiple medical consultations including neurology following. Patient scheduled for EEG today along with carotid Doppler and PT/OT to follow and plan is for possible [facility] re[facility] for continued weakness and unsteady gait. Discussed with neurology about treatment plan and patient is maintained on Keppra twice daily and will continue for now while awaiting for EEG results. Need close outpatient follow-up with urology in the outpatient setting. Due to multiple complex medical issues, prognosis is guarded. Possible discharge in 24 hours. Objective - Vital Signs Vital signs: Vital Signs Temp 97.4 F L 09/27/21 11:44 Pulse 61 09/27/21 11:44 Resp 16 09/27/21 11:44 BP 146/67 09/27/21 11:44 Pulse Ox 95 09/27/21 11:44 Intake & Output 09/26/21 09/27/21 09/27/21 18:59 06:59 18:59 Intake Total 360 60 Output Total 535 865 4171 Balance -40 500 -990 Intake: Oral 360 60 Output: Urine 660 766 8374 Other: # Bowel Movements 1 - Labs CBC & Chem 7: 09/24/21 02:35 09/24/21 02:35 Labs: Abnormal Lab Results - Last 24 Hours (Table) 09/26/21 09/26/21 09/27/21 Range/Units 16:59 20:01 06:03 POC Glucose (mg/dL) 254 H 166 H 159 H (75-99) mg/dL 09/27/21 Range/Units 11:23 POC Glucose (mg/dL) 222 H (75-99) mg/dL
[2021-09-27 16:41] LABS: Glucose,Whole Blood 196 mg/dL (75-99)
[2021-09-27 20:16] LABS: Glucose,Whole Blood 513 mg/dL (75-99)
[2021-09-27 20:17] LABS: Glucose,Whole Blood 197 mg/dL (75-99)
--- NOTE | 2021-09-27 23:37 | EEG ---
ELECTROENCEPHALOGRAM REPORT DATE OF PROCEDURE: 09/27/2021 ELECTROENCEPHALOGRAM (EEG) REPORT: TECHNIQUE: This is a report from a prolonged 2-1/2-hour inpatient digital video EEG performed using the 10/20 electrode placement system. HISTORY: HISTORY: Hyperglycemia, encephalopathy. Other medical history includes hypertension. CURRENT MEDICATIONS: Aspirin, Lipitor, Zetia, Pepcid, Prozac, Amaryl, heparin, , insulin, Keppra, Lopressor, Singulair. FINDINGS: Recording start time: 09/27/2021 at 8:26 a.m. Recording end time: 09/27/2021 at 10:52 a.m. EVENTS: During this prolonged 2-1/2-hour inpatient video EEG, no clinical or electrographic seizures were recorded. BACKGROUND: A slight background asymmetry was noted. Frequencies were more sustained over the right posterior quadrants in the 7 to 8 hertz range with some intermixed theta range slowing, whereas those in the left posterior quadrants were slower and not as well sustained, in the 6 to 8 hertz range with more intermixed theta range slowing. ACTIVATION: Hyperventilation: Not performed. Photic stimulation: Mild symmetric driving seen. Sleep: Stages I and II sleep noted. ABNORMALITIES: 1. Frequent frontally predominant delta range slowing was seen. 2. Frequent triphasic waves were seen. 3. Left hemispheric greater than right hemispheric slow wave activity was seen with greater focality over the frontal more than temporal regions. IMPRESSION: Abnormal prolonged video EEG. No clinical or electrographic seizures were recorded. No epileptiform activity was present. The triphasic waves mentioned above are not epileptiform in nature. Triphasic waves can be seen in the setting of a metabolic encephalopathy. The frontally predominant delta range slowing mentioned above is not epileptiform in nature. As mentioned, left hemispheric greater than right hemispheric slow wave activity was seen with greater focality over the left frontal more than temporal regions. These findings indicate mild diffuse cerebral dysfunction of the right hemisphere and moderate diffuse cerebral dysfunction of the left hemisphere and can be seen with the potential presence of a structural abnormality involving the left frontal region. No seizures were recorded. No epileptiform activity was present. MMODL / IJN: [id number] /
[2021-09-28 04:23] VITALS: TEMP 97.9
[2021-09-28 06:11] LABS: Glucose,Whole Blood 154 mg/dL (75-99)
[2021-09-28] MEDS: GLIMEPIRIDE 1 MG TAB PO SCH (06:35)
[2021-09-28] MEDS: INSULIN ASPART (NovoLOG) 100 UNIT/ML VIAL SQ SCH ×2 (06:38→12:29)
[2021-09-28 08:11] VITALS: BMI 34.4
[2021-09-28] MEDS ORDERED: CYANOCOBALAMIN 1,000 MCG/ML 1 ML VIAL IM ONE (08:35)
[2021-09-28] MEDS: FAMOTIDINE 20 MG/2 ML VIAL IV SCH (08:42)
[2021-09-28] MEDS: ASPIRIN 325 MG TAB PO SCH (08:42)
[2021-09-28] MEDS: ATORVASTATIN 40 MG TAB PO SCH (08:42)
[2021-09-28] MEDS: METOPROLOL TARTRATE 25 MG TAB PO SCH (08:42)
[2021-09-28] MEDS: EZETIMIBE 10 MG TAB PO SCH (08:42)
[2021-09-28] MEDS: hydroCHLOROthiazide 12.5 MG CAP PO SCH (08:42)
[2021-09-28] MEDS: HEPARIN SODIUM,PORCINE/PF 5,000 UNIT/0.5 ML SYRINGE SQ SCH (08:42)
[2021-09-28] MEDS: MONTELUKAST 10 MG TAB PO SCH (08:43)
[2021-09-28] MEDS: levETIRAcetam 500 MG TAB PO SCH (08:43)
[2021-09-28 08:50] VITALS: BP 139/66; PULSE 67; RESP 16
--- NOTE | 2021-09-28 08:50 | P.PN ---
Subjective Progress Note Date: 09/27/21 Patient is laying comfortably in the bed. No new focal symptoms. Patient continues to have significant fluent aphasia. Not able to name, repeat, or follow directions. Objective - Vital Signs Vital signs: Vital Signs Temp 97.9 F 09/28/21 04:00 Pulse 62 09/28/21 04:00 Resp 18 09/28/21 04:00 BP 144/69 09/28/21 04:00 Pulse Ox 95 09/28/21 04:00 Intake & Output 09/27/21 09/28/21 09/28/21 18:59 06:59 18:59 Intake Total 296 Output Total 1650 750 Balance -1354 -750 Weight 108.862 kg Intake: Oral 296 Output: Urine 1650 750 Other: Voiding Method External Catheter # Bowel Movements 1 - Exam Patient is alert and awake, very pleasant. Patient has fluent aphasia. Cranial nerves significant for right facial asymmetry. Right pronator drift, but the strength is normal in the arms and legs. Tone and bulk of muscles marcio l. Sensations cannot be assessed. - Labs CBC & Chem 7: 09/24/21 02:35 09/24/21 02:35 Labs: Abnormal Lab Results - Last 24 Hours (Table) 09/27/21 09/27/21 09/27/21 Range/Units 11:23 16:39 20:15 POC Glucose (mg/dL) 222 H 196 H 513 H (75-99) mg/dL 09/27/21 09/28/21 Range/Units 20:16 06:09 POC Glucose (mg/dL) 197 H 154 H (75-99) mg/dL Assessment and Plan Assessment: * Probable breakthrough seizure versus ?TIA, versus syncopal spell. * History of left MCA CVA, with significant fluent aphasia. * History of possible focal seizure on 12/2020 * Diabetes Mellitus * History of hypertension Plan: * Patient underwent a 2.5 hours video EEG. No clinical or electrographic seizure recorded. No epileptiform activity was present. In general, it was reported as some triphasic waves, some left frontally maximal focal delta slowing. No epileptiform activity was seen. I reviewed the report in detail. * Patient's CTA of head and neck from 09/23/2021 revealed chronic left M1 MCA occlusion. Moderate severe stenosis of the M2 segment of the right MCA, slightly increased compared to prior, right MCA is not completely occluded. 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 The basilar artery is not completely occluded. Mild narrowing of the bilateral common carotid artery bifurcation. Soft tissue like opacity in the right hemithorax incompletely evaluated recommend correlation with frontal chest radiograph. 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 The differential is between TIA versus focal seizure. * Continue Keppra 500 mg twice a day, which is the optimal dose. * I will change her antiplatelet regimen from aspirin 325 mg to dual antiplatelet medication including aspirin 81 mg and Plavix 75 mg daily. * Lipid panel with cholesterol 202, LDL 115, HDL 33 and triglycerides 264. We will increase Lipitor to 80 mg daily. Patient's intracranial vascular stenosis is getting worse based upon current CTA. * Management of diabetes as per IM. * Patient's hemoglobin A1c 8.2, indicating poorly controlled diabetes. Suggest optimizing control of diabetes to target A1c < 7.0. * Telemetry monitoring in the last 24 hours shows normal sinus rhythm. No other arrhythmia. * Patient's B12 is 280 (200-944). We will give vitamin B12 1000 g IM and then started vitamin B12 1000 mcg orally daily. * Upon discharge the patient needs to follow-up with a neuro intervention in 2-4 weeks to discuss abnormal CTA results. At this time patient needs maximal m edical management, before any intervention. * I discussed with Dr. Heart and patient's granddaughter Mary in detail. Time with Patient: Greater than 30 (Complexity high)
[2021-09-28] MEDS ORDERED: CLOPIDOGREL 75 MG TAB PO SCH (09:00)
[2021-09-28] MEDS ORDERED: ATORVASTATIN 80 MG TAB PO SCH (09:00)
--- NOTE | 2021-09-28 10:55 | P.DS ---
Providers Date of admission: 09/23/21 15:51 Expected date of discharge: 09/28/21 Attending physician: Mehul Huang Consults: 09/23/21 15:52 Consult Physician Urgent Consulting Provider: Darin Lewis Consult Reason/Comments: possible cva Do you want consulting provider notified?: Yes Primary care physician: Natali Lawson Hospital Course: Final diagnosis Change in mental status, possibly secondary to acute metabolic encephalopathy and breakthrough seizures Expressive aphasia, chronic Intracranial disease with chronic left MCA occlusion moderate to severe stenosis of the M2 segment of the right MCA, slightly increased compared to previous exam 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 Patient will follow-up with Dr. Rivers in the outpatient setting upon discharge. Patient is to continue with oral keppra 500 mg BID and also aspirin and plavix and needs close outpatient follow up with interventional neurology and neurology in 1-2 weeks. Recommend outpatient follow up with vascular surgery in 1-2 weeks. Total time taken is greater than 35 minutes. Hospital course This is a 80-year-old female who was recently admitted for changes in mental status and possible expressive aphasia and admitted for further evaluation. Patient was followed closely by neurology and underwent extensive neurological testing including prolonged EEG which was showing no epileptiform activity although abnormal. Detailed discussion was had with thomas who is agre eable to continue with keppra and patient will also need interventional neurology in follow up and also vascular surgery. Patient to continue with statin, aspirin and plavix as well. Patient to continue to follow with neurology outpatient. Recommend accuchecks achs and assistance with meals and supervision and head of bed elevated 30-45 degrees at all times. Continue with oral diabetic agents and sliding scale. Currently no reports of chest pain, shortness of breath, or palpitations. Patient is afebrile. No reports of nausea or vomiting and patient is tolerating diet. Patient will be going to [facility] today. On exam vital signs are stable. Cardio S1, S2 are muffled. Respiratory system shows diminished breath sounds at the bases with no wheezing or rhonchi noted. Abdomen is soft and nontender. Nervous system shows diffuse weakness. Please refer to medication reconciliation sheet for a list of medications. Patient Condition at Discharge: Stable Plan - Discharge Summary Discharge Rx Participant: No New Discharge Prescriptions: New Aspirin 81 mg PO DAILY tab levETIRAcetam [Keppra] 500 mg PO Q12HR tab INSULIN ASPART (NovoLOG) [NovoLOG (formulary)] 0 unit SQ ACHS ml Glimepiride [Amaryl] 2 mg PO AC-BRKFST tab Atorvastatin [Lipitor] 80 mg PO DAILY tab Clopidogrel [Plavix] 75 mg PO DAILY tab Continue Montelukast [Singulair] 10 mg PO DAILY Ezetimibe [Zetia] 10 mg PO DAILY Hydrochlorothiazide [hydroCHLOROthiazide] 12.5 mg PO DAILY #30 capsule Metoprolol Tartrate [Lopressor] 25 mg PO DAILY FLUoxetine HCL 40 mg PO DAILY Omeprazole 20 mg PO DAILY metFORMIN HCL [Glucophage] 1,000 mg PO BID Discontinued Aspirin 325 mg PO DAILY #30 tab Rosuvastatin [Crestor] 20 mg PO DAILY Discharge Medication List Ezetimibe [Zetia] 10 mg PO DAILY 09/11/15 [History] Montelukast [Singulair] 10 mg PO DAILY 09/11/15 [History] Hydrochlorothiazide [hydroCHLOROthiazide] 12.5 mg PO DAILY #30 capsule 09/15/15 [Rx] FLUoxetine HCL 40 mg PO DAILY 01/17/21 [History] Metoprolol Tartrate [Lopressor] 25 mg PO DAILY 01/17/21 [History] Omeprazole 20 mg PO DAILY 01/17/21 [History] metFORMIN HCL [Glucophage] 1,000 mg PO BID 09/23/21 [History] Aspirin 81 mg PO DAILY tab 09/28/21 [Rx] Atorvastatin [Lipitor] 80 mg PO DAILY tab 09/28/21 [Rx] Clopidogrel [Plavix] 75 mg PO DAILY tab 09/28/21 [Rx] Glimepiride [Amaryl] 2 mg PO AC-BRKFST tab 09/28/21 [Rx] INSULIN ASPART (NovoLOG) [NovoLOG (formulary)] 0 unit SQ ACHS ml 09/28/21 [Rx] levETIRAcetam [Keppra] 500 mg PO Q12HR tab 09/28/21 [Rx] Follow up Appointment(s)/Referral(s): Natali Lawson DO [Primary Care Provider] - 1-2 days Patient Instructions/Handouts: Seizure/Epilepsy Discharge Instructions & Follow-Up Activity/Diet/Wound Care/Special Instructions: Dr huang to see prior to discharge Patient is going to [facility] Activity as tolerated Continue current diet continue aspirin/plavix follow up closely in 1-2 weeks with interventional neurology per neuro recommendations continue to monitor accuchecks achs continue sliding scale Novolog scale 1-150 0 units 151-200 2 units 201-250 4 units 251-300 6 units 301-350 8 units 351-400 10 units and notify provider follow up primary care provider on discharge continue Keppra 500 mg BID follow up outpatient with vascular surgery 2 weeks Discharge Disposition: TRANSFER TO SNF/ECF
[2021-09-28 11:52] LABS: Glucose,Whole Blood 140 mg/dL (75-99)
[2021-09-28] MEDS: FLUoxetine HCL 20 MG CAP PO SCH (12:33)
[2021-09-29] MEDS ORDERED: ASPIRIN 81 MG PO SCH (09:00)
== END 2021-09-28 13:02 | DRG 100 ==
LOC: EC 12:35 → 3SCARD 15:51
PROVIDERS: ADMIT Hospitalist; ATTEND Hospitalist
DX: G40.909 Epilepsy, unspecified, not intractable, without status epilepticus (principal); G93.41 Metabolic encephalopathy; E87.2 Acidosis; I69.351 Hemiplegia and hemiparesis following cerebral infarction affecting right dominant side; I66.02 Occlusion and stenosis of left middle cerebral artery; I65.1 Occlusion and stenosis of basilar artery; G30.9 Alzheimer's disease, unspecified; F02.80 Dementia in other diseases classified elsewhere, unspecified severity, without behavioral disturbance, psychotic disturbance, mood disturbance, and anxiety; F01.50 Vascular dementia, unspecified severity, without behavioral disturbance, psychotic disturbance, mood disturbance, and anxiety; E11.65 Type 2 diabetes mellitus with hyperglycemia; Z20.822 Contact with and (suspected) exposure to COVID-19; G93.89 Other specified disorders of brain; I65.23 Occlusion and stenosis of bilateral carotid arteries; I69.320 Aphasia following cerebral infarction; I10 Essential (primary) hypertension; E78.5 Hyperlipidemia, unspecified; K21.9 Gastro-esophageal reflux disease without esophagitis; R26.9 Unspecified abnormalities of gait and mobility; E66.9 Obesity, unspecified; Z68.34 Body mass index [BMI] 34.0-34.9, adult; Z79.82 Long term (current) use of aspirin; Z79.84 Long term (current) use of oral hypoglycemic drugs; Z79.899 Other long term (current) drug therapy; Z88.8 Allergy status to other drugs, medicaments and biological substances; Z86.718 Personal history of other venous thrombosis and embolism; Z87.39 Personal history of other diseases of the musculoskeletal system and connective tissue; Z98.890 Other specified postprocedural states; Z71.3 Dietary counseling and surveillance; Z83.3 Family history of diabetes mellitus; Z82.3 Family history of stroke; Z83.2 Family history of diseases of the blood and blood-forming organs and certain disorders involving the immune mechanism
CPT/HCPCS: 36415; 70450; 70496; 70498; 71046; 80048; 80053; 80061; 81001; 82607; 82746; 83036; 83605; 83735; 84145; 84443; 84484; 85025; 85610; 85730; 87635; 93005; 95713; 99291

== ENCOUNTER 2021-10-11 13:34 | Emergency (ER) | payer MEDICARE ==
[2021-10-11 13:51] VITALS: RESP 18
[2021-10-11] MEDS ORDERED: MORPHINE SULFATE 2 MG/ML SYRINGE IVP STA (14:08)
--- NOTE | 2021-10-11 14:11 | ED ---
General Adult HPI - General Chief complaint: Abdominal Pain Stated complaint: Abd pain Time Seen by Provider: 10/11/21 13:54 Source: EMS, RN notes reviewed, old records reviewed Mode of arrival: EMS Limitations: altered mental status - History of Present Illness Initial comments: 1-year-old female who presented from shelter with persistent abdominal pain. Patient is unable to give any historical details. She was noted to have right lower quadrant abdominal pain by staff and sent to the emergency department for evaluation. - Related Data Home Medications Medication Instructions Recorded Confirmed Ezetimibe [Zetia] 10 mg PO DAILY@0800 09/11/15 10/11/21 Montelukast [Singulair] 10 mg PO HS 09/11/15 10/11/21 FLUoxetine HCL 40 mg PO DAILY@0800 01/17/21 10/11/21 Metoprolol Tartrate [Lopressor] 25 mg PO DAILY@0800 01/17/21 10/11/21 metFORMIN HCL [Glucophage] 1,000 mg PO BID@0800,2100 09/23/21 10/11/21 Acetaminophen Tab [Tylenol] 650 mg PO Q4H PRN 10/11/21 10/11/21 Albuterol Nebulized [Ventolin 2.5 mg INHALATION RT-Q4H PRN 10/11/21 10/11/21 Nebulized] Ascorbic Acid [Vitamin C] 1,000 mg PO DAILY@0800 10/11/21 10/11/21 Aspirin EC [Ecotrin Low Dose] 81 mg PO DAILY@1700 10/11/21 10/11/21 Atorvastatin [Lipitor] 80 mg PO HS 10/11/21 10/11/21 Cholecalciferol [Vitamin D3 (25 50 mcg PO DAILY@0810/11/21 10/11/21 Mcg = 1000 Iu)] Clopidogrel [Plavix] 75 mg PO DAILY@0800 10/11/21 10/11/21 Enoxaparin [Lovenox] 40 mg SQ DAILY@0800 10/11/21 10/11/21 Glimepiride [Amaryl] 2 mg PO DAILY@0700 10/11/21 10/11/21 Hydrochlorothiazide 12.5 mg PO DAILY@0800 10/11/21 10/11/21 [hydroCHLOROthiazide] INSULIN ASPART (NovoLOG) [NovoLOG See Protocol SQ ACHS 10/11/21 10/11/21 (formulary)] Loperamide HCl [Loperamide] 2 mg PO DAILY PRN 10/11/21 10/11/21 Magnesium Hydroxide [Milk of 7,200 mg PO Q48H PRN 10/11/21 10/11/21 Magnesia Concentrate] Na Phos,M-B/Na Phos,Di-Ba [Fleet 133 ml RECTAL DAILY PRN 10/11/21 10/11/21 Adult] Pantoprazole [Protonix] 40 mg PO DAILY@0800 10/11/21 10/11/21 Quercetin 250mg 500 mg PO DAILY@0800 10/11/21 10/11/21 Zinc Sulfate [Orazinc] 220 mg PO DAILY@0800 10/11/21 10/11/21 bisacodyL 10 mg RECTAL DAILY PRN 10/11/21 10/11/21 levETIRAcetam [Keppra] 500 mg PO BID@0800,2100 10/11/21 10/11/21 Allergies Allergy/AdvReac Type Severity Reaction Status Date / Time loratadine Allergy Unknown Verified 10/11/21 14:56 pseudoephedrine Allergy Unknown Verified 10/11/21 14:56 Decongestants Allergy Unknown Uncoded 10/11/21 14:56 Review of Systems ROS Statement: Those systems with pertinent positive or pertinent negative responses have been documented in the HPI. ROS Other: All systems not noted in ROS Statement are negative. Past Medical History Past Medical History: Deep Vein Thrombosis (DVT), Hypertension, Unable to Obtain Additional Past Medical History / Comment(s): Altered mental status patient unable to answer questions message left at home phone number to call back to help with medical hs and admit info. History of Any Multi-Drug Resistant Organisms: None Reported Past Surgical History: Orthopedic Surgery Past Anesthesia/Blood Transfusion Reactions: Unable to Obtain Past Psychological History: Unable to Obtain Smoking Status: Never smoker Past Alcohol Use History: None Reported Past Drug Use History: Unable to Obtain - Past Family History Father Family Medical History: Diabetes Mellitus Mother Family Medical History: Blood Disorder, CVA/TIA General Exam Limitations: altered mental status General appearance: alert, in no apparent distress Head exam: Present: atraumatic, normocephalic Eye exam: Present: normal appearance ENT exam: Present: mucous membranes dry Neck exam: Present: normal inspection. Absent: tenderness, meningismus Respiratory exam: Present: normal lung sounds bilaterally. Absent: respiratory distress Cardiovascular Exam: Present: regular rate, normal rhythm GI/Abdominal exam: Present: soft, distended, tenderness. Absent: guarding Extremities exam: Present: normal inspection, normal capillary refill. Absent: pedal edema Neurological exam: Present: alert. Absent: oriented X3 Skin exam: Present: warm, dry, intact Course Vital Signs 10/11/21 13:43 Pulse Rate 90 Respiratory 18 Rate Blood Pressure 151/87 O2 Sat by Pulse 94 L Oximetry EKG Findings - EKG Comments: EKG Findings:: EKG: Sinus rhythm with PVC, left access, rate of 92, MN interval 164, QRS duration 86, QTC 442, no ST segment elevation. Medical Decision Making - Medical Decision Making 80-year-old female who had presented for evaluation of abdominal pain. Patient poor historian unable to obtain historical details from the patient therefore workup was initiated including laboratory testing, urinalysis, and CT imaging of the abdomen. Additionally the patient was felt to have some hip pain on the left. X-ray negative for fracture dislocation. Patient has CT with multiple incidental findings but no acute infectious process, nothing to explain the patient's generalized abdominal pain. There may be some UPJ obstruction with mild [place]. Additionally there is symptoms suspicious findings in the pancreas. She has a mild leukocytosis, relatively normal laboratory testing, negative urinalysis. This time I feel the patient is stable for discharge back to the shelter with outpatient follow-up. - Lab Data Result diagrams: 10/11/21 13:52 10/11/21 13:52 Lab Results 10/11/21 10/11/21 10/11/21 Range/Units 13:52 13:52 13:52 WBC 12.6 H (3.8-10.6) k/uL RBC 5.45 H (3.80-5.40) m/uL Hgb 15.8 (11.4-16.0) gm/dL Hct 46.2 H (34.0-46.0) % MCV 84.7 (80.0-100.0) fL MCH 28.9 (25.0-35.0) pg MCHC 34.2 (31.0-37.0) g/dL RDW 12.2 (11.5-15.5) % Plt Count 255 (150-450) k/uL MPV 8.4 Neutrophils % 78 % Lymphocytes % 12 % Monocytes % 8 % Eosinophils % 1 % Basophils % 0 % Neutrophils # 9.8 H (1.3-7.7) k/uL Lymphocytes # 1.4 (1.0-4.8) k/uL Monocytes # 1.0 (0-1.0) k/uL Eosinophils # 0.2 (0-0.7) k/uL Basophils # 0.0 (0-0.2) k/uL PT 10.2 (9.0-12.0) sec INR 0.9 (<1.2) APTT 22.9 (22.0-30.0) sec Sodium 133 L (137-145) mmol/L Potassium 4.0 (3.5-5.1) mmol/L Chloride 97 L (98-107) mmol/L Carbon Dioxide 25 (22-30) mmol/L Anion Gap 11 mmol/L BUN 25 H (7-17) mg/dL Creatinine 0.59 (0.52-1.04) mg/dL Est GFR (CKD-EPI)AfAm >90 (>60 ml/min/1.73 sqM) Est GFR (CKD-EPI)NonAf 86 (>60 ml/min/1.73 sqM) Glucose 182 H (74-99) mg/dL Plasma Lactic Acid Ray (0.7-2.0) mmol/L Calcium 9.2 (8.4-10.2) mg/dL Total Bilirubin 1.1 (0.2-1.3) mg/dL AST 30 (14-36) U/L ALT 29 (4-34) U/L Alkaline Phosphatase 70 (38-126) U/L Total Protein 6.4 (6.3-8.2) g/dL Albumin 3.6 (3.5-5.0) g/dL Amylase <30 L (30-110) U/L Lipase 97 (23-300) U/L Urine Color Urine Appearance (Clear) Urine pH (5.0-8.0) Ur Specific [place] (1.001-1.035) Urine Protein (Negative) Urine Glucose (UA) (Negative) Urine Ketones (Negative) Urine Blood (Negative) Urine Nitrite (Negative) Urine Bilirubin (Negative) Urine Urobilinogen (<2.0) mg/dL Ur Leukocyte Esterase (Negative) Urine RBC (0-5) /hpf Urine WBC (0-5) /hpf Ur Squamous Epith Cells (0-4) /hpf Urine Mucus (None) /hpf 10/11/21 10/11/21 Range/Units 13:52 15:53 WBC (3.8-10.6) k/uL RBC (3.80-5.40) m/uL Hgb (11.4-16.0) gm/dL Hct (34.0-46.0) % MCV (80.0-100.0) fL MCH (25.0-35.0) pg MCHC (31.0-37.0) g/dL RDW (11.5-15.5) % Plt Count (150-450) k/uL MPV Neutrophils % % Lymphocytes % % Monocytes % % Eosinophils % % Basophils % % Neutrophils # (1.3-7.7) k/uL Lymphocytes # (1.0-4.8) k/uL Monocytes # (0-1.0) k/uL Eosinophils # (0-0.7) k/uL Basophils # (0-0.2) k/uL PT (9.0-12.0) sec INR (<1.2) APTT (22.0-30.0) sec Sodium (137-145) mmol/L Potassium (3.5-5.1) mmol/L Chloride (98-107) mmol/L Carbon Dioxide (22-30) mmol/L Anion Gap mmol/L BUN (7-17) mg/dL Creatinine (0.52-1.04) mg/dL Est GFR (CKD-EPI)AfAm (>60 ml/min/1.73 sqM) Est GFR (CKD-EPI)NonAf (>60 ml/min/1.73 sqM) Glucose (74-99) mg/dL Plasma Lactic Acid Ray 1.6 (0.7-2.0) mmol/L Calcium (8.4-10.2) mg/dL Total Bilirubin (0.2-1.3) mg/dL AST (14-36) U/L ALT (4-34) U/L Alkaline Phosphatase (38-126) U/L Total Protein (6.3-8.2) g/dL Albumin (3.5-5.0) g/dL Amylase (30-110) U/L Lipase (23-300) U/L Urine Color Yellow Urine Appearance Clear (Clear) Urine pH 6.0 (5.0-8.0) Ur Specific [place] >1.050 H (1.001-1.035) Urine Protein Trace H (Negative) Urine Glucose (UA) Negative (Negative) Urine Ketones Negative (Negative) Urine Blood Negative (Negative) Urine Nitrite Negative (Negative) Urine Bilirubin Negative (Negative) Urine Urobilinogen <2.0 (<2.0) mg/dL Ur Leukocyte Esterase Trace H (Negative) Urine RBC 2 (0-5) /hpf Urine WBC 5 (0-5) /hpf Ur Squamous Epith Cells 1 (0-4) /hpf Urine Mucus Rare H (None) /hpf Disposition Clinical Impression: Abdominal pain Disposition: HOME SELF-CARE Condition: Stable Instructions (If sedation given, give patient instructions): Abdominal Pain (ED) Is patient prescribed a controlled substance at d/c from ED?: No Referrals: Umesh Arellano DO [Primary Care Provider] - 1-2 days Time of Disposition: 16:48
[2021-10-11 14:37] LABS: ALT 29 U/L (4-34); AST 30 U/L (14-36); African American GFR (CKD) >90 (>60 ml/min/1.73 sqM); Albumin 3.6 g/dL (3.5-5.0); Alkaline Phosphatase 70 U/L (38-126); Anion Gap 11 mmol/L; Blood Urea Nitrogen 25 mg/dL (7-17); Calcium 9.2 mg/dL (8.4-10.2); Carbon Dioxide 25 mmol/L (22-30); Chloride 97 mmol/L (98-107); Glucose 182 mg/dL (74-99); Lipase 97 U/L (23-300); Non-African American GFR(CKD) 86 (>60 ml/min/1.73 sqM); Sodium 133 mmol/L (137-145); Total Bilirubin 1.1 mg/dL (0.2-1.3); Total Protein 6.4 g/dL (6.3-8.2)
[2021-10-11 14:39] LABS: Amylase <30 U/L (30-110)
[2021-10-11 14:49] LABS: INR 0.9 (<1.2); Partial Thromboplastin Time 22.9 sec (22.0-30.0); Prothrombin Time 10.2 sec (9.0-12.0)
[2021-10-11 14:57] LABS: Basophils % (A) 0 %; Eosinophils # (A) 0.2 k/uL (0-0.7); Eosinophils % (A) 1 %; HCT 46.2 % (34.0-46.0); HGB 15.8 gm/dL (11.4-16.0); Lymphocytes # (A) 1.4 k/uL (1.0-4.8); Lymphocytes % (A) 12 %; MCH 28.9 pg (25.0-35.0); MCHC 34.2 g/dL (31.0-37.0); MCV 84.7 fL (80.0-100.0); Mean Platelet Volume 8.4; Monocytes % (A) 8 %; Neutrophils # (A) 9.8 k/uL (1.3-7.7); Neutrophils % (A) 78 %; Platelet Count 255 k/uL (150-450); RBC 5.45 m/uL (3.80-5.40); RDW 12.2 % (11.5-15.5); WBC 12.6 k/uL (3.8-10.6)
--- NOTE | 2021-10-11 15:37 | CT ---
EXAMINATION TYPE: CT abdomen pelvis w con DATE OF EXAM: 10/11/2021 COMPARISON: Pain HISTORY: abdominal pain CT DLP: 1828.4 mGycm Automated exposure control for dose reduction was used. CONTRAST: CT scan of the abdomen pelvis is performed with IV Contrast, patient injected with 100 mL of Isovue 3 00. FINDINGS- Subsegmental changes at both lung bases most typical of atelectasis. Calcification along the upper ma rgin of the liver. Small hiatal hernia. Exam is limited as the patient had difficulty cooperating the procedure resulted in significant artif act. There appears to be evidence of previous cholecystectomy. Lobulation of the renal cortex is seen with no evidence of hydronephrosis. There is a simple appearing lower pole medial right renal cyst. There does appear to be mild right-sided hydronephrosis which could been the basis of a congenital UP J obstruction. Atherosclerotic changes aorta. No evidence of aneurysm. Liver and spleen homogeneous. Along the dista l margin of the pancreatic tail there is a lobulated area of nodular density with calcification measu ring approximately 1.6 cm. Accessory splenule incidentally noted. Bowel gas pattern nonspecific. There are multiple 1 cm or less areas of abnormal attenuation in the a nterior subcutaneous tissues with the which could represent an area of edema or previous injection si te. Multiple additional other areas are seen with throughout the subcutaneous tissues. Arthropathy of the hips. Degenerative change of the spine with a chronic appearing endplate deformity of L2. Grade 1 anterolisthesis L4 and L5 likely degenerative with multilevel facet arthropathy and foraminal encro achment. Changes of diverticulosis but no CT evidence of diverticulitis. Nonspecific tiny hyperdensity at the level of the vaginal cuff measuring 5 mm too small to characterize. IMPRESSION- 1. Diverticulosis with no CT evidence of diverticulitis. 2. Multiple subcutaneous areas of soft tissue attenuation in the anterior subcutaneous tissues. Could be on the basis of small nodular masses or previous injection sites correlate clinically. 3. Mild right hydronephrosis may been the basis of a UPJ obstruction. No renal calcifications or uret eral dilation. 4. Postcholecystectomy. 5. There is a nodular area of prominence of the distal margin of the pancreatic tail. Neoplasm not ex cluded. Measures 1.6 cm. Recommend MRI of the pancreas and correlation with serum tumor markers. Next line 6. Bibasilar subsegmental atelectasis favored over pneumonia.
[2021-10-11 16:04] LABS: Appearance,Urine Clear (Clear); Bilirubin,Urine Negative (Negative); Blood,Urine Negative (Negative); Color,Urine Yellow; Glucose,Urine (UA) Negative (Negative); Ketones,Urine Negative (Negative); Leukocyte Esterase,Urine Trace (Negative); Mucus,Urine Rare /hpf; Nitrite,Urine Negative (Negative); Protein,Urine Trace (Negative); RBC,Urine 2 /hpf (0-5); Squamous Epithelial Cell,Urine 1 /hpf (0-4); Urobilinogen,Urine <2.0 mg/dL (<2.0); WBC,Urine 5 /hpf (0-5)
[2021-10-11 16:07] LABS: Specific Gravity,Urine >1.050 (1.001-1.035)
--- NOTE | 2021-10-11 16:41 | XR ---
EXAMINATION TYPE: XR Hip LT and AP Pelvis DATE OF EXAM: 10/11/2021 COMPARISON: Same-day CT HISTORY: Pain TECHNIQUE: A single AP view of the pelvis is obtained. Two views of the left hip are obtained. FINDINGS: There is no acute fracture or dislocation of the pelvis or left hip. There is mild osteoart hritis of the bilateral hips. There is a 3.2 cm sclerotic focus within the intratrochanteric left fem ur. No evidence of osseous destruction. IMPRESSION: No acute osseous abnormality. Incidental sclerotic focus within the intertrochanteric left femur without aggressive features. Findi ngs suggestive of benign etiology in the absence of known malignancy.
[2021-10-11 18:47] VITALS: BP 148/78; PULSE 80
== END 2021-10-11 18:47 | disposition home or self-care (01) ==
LOC: EC 13:34
DX: R10.31 Right lower quadrant pain (principal); I10 Essential (primary) hypertension; Z79.84 Long term (current) use of oral hypoglycemic drugs; Z79.82 Long term (current) use of aspirin; Z79.02 Long term (current) use of antithrombotics/antiplatelets; Z79.4 Long term (current) use of insulin; Z86.718 Personal history of other venous thrombosis and embolism
CPT/HCPCS: 99285; 96374; 36415; 80053; 82150; 83605; 83690; 85025; 85610; 85730; 81001; 73502; 74177; J2270; Q9967